=== PATIENT | female | born 1975 | race American Indian/Alaskan Native ===

== ENCOUNTER 2016-12-01 11:49 | Inpatient (IN) | payer MEDICARE, OTHER ==
--- NOTE | 2016-12-01 12:20 | ED PDOC ---
Arrival/HPI - General Chief Complaint: Female Genitourinary Time Seen by Provider: 12/01/16 11:51 Historian: Patient - History of Present Illness Narrative History of Present Illness (Text): 12/01/16 12:16 41 year old female whose past medical history includes UTI's presents to the emergency department with dysuria for the past few weeks. Patient reports she saw her PMD and has been on two courses of antibiotics including Cipro. Patient reports the burning returned three days ago. No abdominal pain or other complaints. Time/Duration: > week Symptom Onset: Gradual Symptom Course: Unchanged Associated Symptoms (Text): None Past Medical History - Provider Review Nursing Documentation Reviewed: Yes - Infectious Disease Hx of Infectious Diseases: None - Tetanus Immunization Tetanus Immunization: Unknown - Cardiac Hx Cardiac Disorders: No - Pulmonary Hx Asthma: Yes Hx Bronchitis: Yes Hx Pneumonia: Yes - Neurological Hx Seizures: Yes - HEENT Hx HEENT Disorder: Yes Hx Blind: Yes (right eye total, left eye partial) Hx Cataracts: No Hx Deafness: No Hx Difficulty Chewing: No Hx Epistaxis: No Hx Glaucoma: No Hx Macular Degeneration: No - Renal Hx Renal Disorder: No Hx Kidney Stones: No - Endocrine/Metabolic Hx Hyperthyroidism: No Hx Hypothyroidism: No - Hematological/Oncological Hx Anemia: No Hx Sickle Cell Disease: No - Integumentary Hx Dermatological Disorder: Yes Hx Basal Cell Carcinoma: No Hx Eczema: No Hx Melanoma: No Hx Psoriasis: No Hx Squamous Cell Carcinoma: No Other/Comment: cellulitis - Musculoskeletal/Rheumatological Hx Arthritis: No Hx Fractures: No Hx Osteoporosis: No - Gastrointestinal Hx Gall Bladder Disease: Yes - Genitourinary/Gynecological Hx Urinary Tract Infection: Yes Other/Comment: self cath - Psychiatric Hx Psychophysiologic Disorder: No Hx Substance Use: No - Surgical History Hx Cholecystectomy: Yes - Anesthesia Hx Anesthesia: Yes Hx Anesthesia Reactions: No Hx Malignant Hyperthermia: No - Suicidal Assessment Feels Threatened In Home Enviroment: No Family/Social History - Physician Review Nursing Documentation Reviewed: Yes Family/Social History: Unknown Family HX Smoking Status: Never Smoked Hx Alcohol Use: No Hx Substance Use: No Hx Substance Use Treatment: No Allergies/Home Meds Allergies/Adverse Reactions: Allergies latex Allergy (Severe, Verified 12/01/16 12:05) RASH Home Medications: Home Meds Medication Instructions Recorded Confirmed carBAMazepine [Tegretol] 300 mg PO BID 12/21/13 12/01/16 Albuterol Sulfate [Proair Hfa] 0.09 mg IH BID PRN 12/01/16 12/01/16 Montelukast [Singulair] 10 mg PO DAILY 12/01/16 12/01/16 Vitb,C/Iron Fum/FA/Vit E/Aa 16 1 tab PO DAILY 12/01/16 12/01/16 [Stress Formula Energy Tablet] Review of Systems - Physician Review All systems were reviewed & negative as marked: Yes - Review of Systems Gastrointestinal: absent: Abdominal Pain Genitourinary Female: Dysuria Physical Exam Vital Signs Reviewed: Yes Vital Signs Temp Pulse Resp BP Pulse Ox 12/01/16 11:58 98.4 F 100 H 20 120/76 95 Temperature: Afebrile Blood Pressure: Normal Pulse: Regular Respiratory Rate: Normal Appearance: Positive for: Well-Appearing, Non-Toxic, Comfortable Pain Distress: None Mental Status: Positive for: Alert and Oriented X 3 - Systems Exam Head: Present: Atraumatic, Normocephalic Pupils: Present: PERRL Extroacular Muscles: Present: EOMI Conjunctiva: Present: Normal Mouth: Present: Moist Mucous Membranes Neck: Present: Normal Range of Motion Respiratory/Chest: Present: Clear to Auscultation, Good Air Exchange. No: Respiratory Distress, Accessory Muscle Use Cardiovascular: Present: Regular Rate and Rhythm, Normal S1, S2. No: Murmurs Abdomen: Present: Normal Bowel Sounds. No: Tenderness, Distention, Peritoneal Signs Back: Present: Normal Inspection Upper Extremity: Present: Normal Inspection. No: Cyanosis, Edema Lower Extremity: Present: Normal Inspection. No: Edema Neurological: Present: GCS=15, CN II-XII Intact, Speech Normal Skin: Present: Warm, Dry, Normal Color. No: Rashes Psychiatric: Present: Alert, Oriented x 3, Normal Insight, Normal Concentration Medical Decision Making ED Course and Treatment: Impression: 41 year old female presents to the emergency department with dysuria for the past few weeks. Differential Diagnosis included but are not limited to: UTI failure of outpt Plan: -- Labs -- Urine culture -- Reassess and disposition Progress Notes: 12/01/16 13:09 pt with failure of 2 different antibiotic outpt courses- discussed with pantera. requests admission - Lab Interpretations Lab Results: 12/01/16 12:30 12/01/16 12:30 Lab Results 12/01/16 12:30: Urine Color Dark yellow, Urine Appearance Cloudy, Urine pH 6.5, Ur Specific [place] 1.025, Urine Protein >=300 H, Urine Glucose (UA) 100 H, Urine Ketones Trace H, Urine Blood Large H, Urine Nitrate Positive H, Urine Bilirubin Small H, Urine Urobilinogen 4.0 H, Ur Leukocyte Esterase Large H, Urine RBC Tntc, Urine WBC Tntc, Ur Epithelial Cells Many, Urine Bacteria Large 12/01/16 12:30: Sodium 142, Potassium 4.1, Chloride 103, Carbon Dioxide 26, Anion Gap 17, BUN 12, Creatinine 0.6, Est GFR ( Amer) > 60, Est GFR (Non- Af Amer) > 60, Random Glucose 116 H, Calcium 9.7, Total Bilirubin 0.4, AST 15, ALT 26, Alkaline Phosphatase 159 H, Total Protein 8.3, Albumin 4.6, Globulin 3.8 , Albumin/Globulin Ratio 1.2 12/01/16 12:30: PT 10.4, INR 0.96, APTT 27.8 12/01/16 12:30: WBC 9.3, RBC 4.95, Hgb 14.1, Hct 42.3, MCV 85.5, MCH 28.5, MCHC 33.3, RDW 14.1, Plt Count 428, MPV 9.5, Gran % 73.2 H, Lymph % (Auto) 19.8 L, [place] % (Auto) 5.0, Eos % (Auto) 1.8, Baso % (Auto) 0.2, Gran # 6.81 H, Lymph # 1.8, [place] # 0.5, Eos # 0.2, Baso # 0.02 12/01/16 12:20: Urine HCG, Qual Negative - Medication Orders Current Medication Orders: Ceftriaxone Sodium (Rocephin 1 Gram Ivpb) 1 gm in 100 mls @ 200 mls/hr IVPB STAT STA PRN Reason: Protocol Stop: 12/01/16 13:27 - Scribe Statement The provider has reviewed the documentation as recorded by the Emanuel Ng Provider Scribe Attestation: All medical record entries made by the Deepthiibbarbra were at my direction and personally dictated by me. I have reviewed the chart and agree that the record accurately reflects my personal performance of the history, physical exam, medical decision making, and the department course for this patient. I have also personally directed, reviewed, and agree with the discharge instructions and disposition. Disposition/Present on Arrival - Present on Arrival Any Indicators Present on Arrival: No History of DVT/PE: No History of Uncontrolled Diabetes: No Urinary Catheter: No History of Decub. Ulcer: No History Surgical Site Infection Following: None - Disposition Have Diagnosis and Disposition been Completed?: Yes Diagnosis: UTI (urinary tract infection), Failure of outpatient treatment Disposition: HOSPITALIZED Disposition Time: 13:10 Condition: STABLE
[2016-12-01 12:34] LABS: ADD MANUAL DIFF? NO
[2016-12-01 12:38] LABS: BASO # 0.02 K/mm3 (0.0-2.0); BASO % 0.2 % (0.0-3.0); EOS # 0.2 (0.0-0.7); EOS % 1.8 % (1.5-5.0); GRAN # 6.81 (1.4-6.5); GRAN % 73.2 % (50.0-68.0); HEMATOCRIT 42.3 % (36.0-48.0); LYMPH # 1.8 (1.2-3.4); LYMPH % 19.8 % (22.0-35.0); MEAN CELL VOLUME 85.5 fL (80.0-105.0); MEAN CORPUSCULAR HEMOGLOBIN 28.5 pg (25.0-35.0); MEAN CORPUSCULAR HGB CONC 33.3 g/dl (31.0-37.0); MEAN PLATELET VOLUME 9.5 fl (7.0-11.0); MONO # 0.5 (0.1-0.6); PLATELET COUNT 428 10^3/uL (120.0-450.0); RED CELL DISTRIBUTION WIDTH 14.1 % (11.5-14.5); WHITE BLOOD COUNT 9.3 10^3/ul (4.5-11.0)
[2016-12-01 12:48] LABS: PH,URINE 6.5 (4.7-8.0); URINE BILIRUBIN SMALL (NEGATIVE); URINE BLOOD LARGE (NEGATIVE); URINE GLUCOSE (UA) 100 mg/dL (NEGATIVE); URINE KETONE TRACE mg/dL (NEGATIVE); URINE LEUKOCYTE ESTERASE LARGE Leu/uL (NEGATIVE); URINE PROTEIN >=300 mg/dL (<30 mg/dL)
[2016-12-01 12:51] LABS: INR 0.96 (0.93-1.08); PARTIAL THROMBOPLASTIN TIME 27.8 Seconds (23.7-30.8)
[2016-12-01 12:52] LABS: ALB/GLOB RATIO 1.2 (1.1-1.8); ALKALINE PHOSPHATASE 159 U/L (38-133); ALT/SGPT 26 U/L (7-56); AST/SGOT 15 U/L (15-39); BILIRUBIN,TOTAL 0.4 mg/dL (0.2-1.3); BLOOD UREA NITROGEN 12 mg/dL (7-21); CALCIUM 9.7 mg/dL (8.4-10.5); CARBON DIOXIDE 26 mmol/L (21-33); CHLORIDE 103 mmol/L (98-107); GFR AFRICAN-AMERICAN > 60; GLUCOSE,RANDOM 116 mg/dL (70-110); POTASSIUM 4.1 mmol/L (3.6-5.0); SODIUM 142 mmol/L (132-148); TOTAL PROTEIN 8.3 g/dL (5.8-8.3); URINE APPEARANCE CLOUDY (CLEAR)
[2016-12-01 12:53] LABS: URINE COLOR DARK YELLOW (YELLOW)
[2016-12-01 12:54] LABS: URINE BACTERIA LARGE (NEG); URINE EPITHELIAL CELLS MANY /hpf (0-5); URINE RBC TNTC /hpf (0-2); URINE WBC TNTC /hpf (0-6)
[2016-12-01] MEDS ORDERED: cefTRIAXone 1 gm 1 GM/100 ML BAG IVPB STA (12:58)
[2016-12-01] MEDS ORDERED: Albuterol-Ipratrop 3 mg / 0.5 (3 ml) UD IH PRN (16:13)
[2016-12-01 17:02] VITALS: BMI 42.2
[2016-12-01] MEDS ORDERED: Pneumococcal 23-Valent Vaccine IM ONE (17:02)
[2016-12-01] MEDS: Meropenem 1g/NS 100mL IVPB 1 GM/100 ML PIGGYBACK IVPB SCH (23:45)
[2016-12-02] MEDS: Meropenem 1g/NS 100mL IVPB 1 GM/100 ML PIGGYBACK IVPB SCH ×3 (06:18→21:23)
--- NOTE | 2016-12-02 07:38 | HP ---
CHIEF COMPLAINT: Burning on micturition, frequency. HISTORY OF PRESENT ILLNESS: The patient is a 41-year-old, my private patient, history of spina bifida, angiogenic bladder, doing self-catheterization, has a UTI a couple of weeks ago. My office again gave Bactrim, but still patient has symptoms. Then, we did culture and sensitivity. Bacteria was sensitive to nitrofurantoin. We gave the course of nitrofurantoin, but patient is not better. Then, again, she called my office about the symptoms. I told her to go to see the urologist, but symptoms increased. That is why she came to the Emergency Room. According to patient, burning returned 3 days after antibiotics. No abdominal pain or other complaints. PAST MEDICAL HISTORY: Asthma, bronchitis, pneumonia, seizures. 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 FAMILY HISTORY: Father and mother noncontributory. HABITS: Never smoked, no drugs, no ethanol. ALLERGIES: THE PATIENT IS ALLERGIC TO LATEX. HOME MEDICATIONS: Tegretol, ProAir, Singulair. REVIEW OF SYSTEMS: The patient is seen and examined on the bedside, looks comfortable, complaining about lower abdominal pain once in a while, complaining about dysuria and frequency. No fever, no chills. No hematuria, no hematochezia. No headache, no dizziness. PHYSICAL EXAMINATION: VITAL SIGNS: Temperature 98.4, pulse 100, respiratory rate 20, blood pressure 120/76, pulse oximetry 95%. HEENT: Head normocephalic, atraumatic. Eyes: PERRLA. Extraocular muscles intact. Conjunctivae clear. Nose patent. Mucous membranes moist. NECK: Supple. No carotid bruits, no JVD, no thyromegaly. CHEST: Bilaterally symmetrical. HEART: S1, S2 positive. LUNGS: Clear to auscultation. ABDOMEN: Soft. Bowel sounds positive. No organomegaly. EXTREMITIES: No edema, no cyanosis. NEUROLOGIC: The patient is awake, alert. Moving all 4 extremities. No focal deficits. LABORATORIES: White blood cells 9.3, hemoglobin 14.1, hematocrit 42.3, platelets 428. Sodium 142, potassium 4.1, BUN 12, creatinine 0.6, glucose noted ASSESSMENT AND PLAN: The patient is a 41-year-old lady with hyperglycemia, repeated urinary tract infection. No fever, no leukocytosis because the patient has partially treated urinary tract infection. She did 2 courses of antibiotics. Failure of outpatient treatment of urinary tract infection, history of spina bifida, neurogenic bladder, obesity, blind from 1 eye. We admitted the patient, started on antibiotics, called consult with infectious disease and with urologist. Gastrointestinal and deep venous thrombosis prophylaxis. Repeat labs. We will follow up. Rhea Randhawa MD cc: [id number] TT: 12/02/2016 07:38:10 en MTDD
--- NOTE | 2016-12-02 09:15 | US ---
PROCEDURE: Ultrasound of the Kidneys HISTORY: rule out hydronephrosis COMPARISON: None available. TECHNIQUE: Sonogram of the kidneys. FINDINGS: RIGHT KIDNEY: Measures: 9.7 cm. Normal in size, contour and echogenicity. No stone, solid mass lesion or hydronephrosis visualized. LEFT KIDNEY: Measures: 10.8 cm. Normal in size, contour and echogenicity. No stone, solid mass lesion or hydronephrosis visualized. OTHER FINDINGS: None. IMPRESSION: Unremarkable renal sonogram.
[2016-12-02] MEDS ORDERED: cefTRIAXone 1 gm 1 GM/100 ML BAG IVPB SCH (10:00)
[2016-12-02] MEDS: Multivitamin Therapeutic Tab PO SCH (10:01)
--- NOTE | 2016-12-02 10:47 | CP.PCM.CON ---
History of Present Illness - History of Present Illness History of Present Illness: 41 year old female with PMH of neurogenic bladder with chronic self- catheterization, history of asthma and bronchitis, history of pneumonia, history of multiple UTI's, right eye blindness, history of basal cell CA, S/P cholecystectomy, spina bifida, was sent in for admission because of possible UTI. The patient was seen 2 weeks ago by her PMD and was started on treatment with Nitrofurantoin based on urine cx. She went back to her PMD because she felt it was not working and she continued the burning sensation on catheterization. She was then switched to Ciprofloxacin and she completed a 7 day course with relief. It then recurred 3 days earlier and she was told by her PMD to be admitted. She denies fever or chills, no nausea or vomiting, no flank pain, no headache or dizziness, no chest pain, no SOB, no cough or colds, no abdominal pain, no diarrhea. In the ED, urinalysis showed pyuria and Infectious Diseases consult is requested to further evaluate and manage. Review of Systems - Review of Systems All systems: reviewed and no additional remarkable complaints except (as per HPI ) Past Patient History - Infectious Disease Hx of Infectious Diseases: None - Tetanus Immunizations Tetanus Immunization: Unknown - Past Social History Smoking Status: Never Smoked - CARDIAC Hx Cardiac Disorders: No - PULMONARY Hx Asthma: Yes Hx Bronchitis: Yes Hx Pneumonia: Yes - NEUROLOGICAL Hx Seizures: Yes (last seizure 3/4 yrs ago) - HEENT Hx HEENT Problems: Yes (eyeglasses) Hx Blind: Yes (right eye total, left eye partial) Hx Cataracts: No Hx Deafness: No Hx Difficulty Chewing: No Hx Epistaxis: No Hx Glaucoma: No Hx Macular Degeneration: No Other/Comment: recent cough and cold done 1 wk ago - RENAL Hx Chronic Kidney Disease: No Hx Neurogenic Bladder: Yes (self catherization) - ENDOCRINE/METABOLIC Hx Hyperthyroidism: No Hx Hypothyroidism: No - HEMATOLOGICAL/ONCOLOGICAL Hx Anemia: No Hx Sickle Cell Disease: No - INTEGUMENTARY Hx Dermatological Problems: Yes Hx Basil Cell: No Hx Eczema: No Hx Melanoma: No Hx Psoriasis: No Hx Squamous Cell: No Other/Comment: cellulitis, pt had wound in front of r great toe, osteomylitis, that was cared for by dr alamo in 2014 which is now healed, caused by shoes that were too tight - MUSCULOSKELETAL/RHEUMATOLOGICAL Hx Musculoskeletal Disorders: Yes (born with spina bifida) Hx Arthritis: No Hx Falls: No Hx Fractures: No Hx Osteoporosis: No Hx Unsteady Gait: Yes (uses walker b/l leg braces) Other/Comment: multiple 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] from age 19 to 3 yrs ago, multiple picc lines for home abx - GASTROINTESTINAL Hx Gall Bladder Disease: Yes Hx Gastroesophageal Reflux: Yes - GENITOURINARY/GYNECOLOGICAL Hx Urinary Tract Infection: Yes Other/Comment: self cath - PSYCHIATRIC Hx Psychophysiologic Disorder: No Hx Substance Use: No - SURGICAL HISTORY Hx Surgeries: Yes (multiple picc lines in and out) Hx Cholecystectomy: Yes Other/Comment: multiple surgeries from to 10 yrs old include 14 shunt operations, pins in hips, spinal cord sx - ANESTHESIA Hx Anesthesia: Yes Hx Anesthesia Reactions: No Hx Malignant Hyperthermia: No Meds Allergies/Adverse Reactions: Allergies Allergy/AdvReac Type Severity Reaction Status Date / Time latex Allergy Severe RASH Verified 12/01/16 12:05 - Medications Medications: Current Medications Acetaminophen (Tylenol 325mg Tab) 650 mg PO Q6H PRN PRN Reason: Pain, moderate (4-7) Last Admin: 12/01/16 20:01 Dose: 650 mg Albuterol/Ipratropium (Duoneb 3 Mg/0.5 Mg (3 Ml) Ud) 3 ml IH [id number] PRN PRN Reason: Shortness of Breath Carbamazepine (Tegretol) 300 mg PO Q12 WILVER PRN Reason: Protocol Last Admin: 12/01/16 22:18 Dose: 300 mg Ceftriaxone Sodium (Rocephin 1 Gram Ivpb) 1 gm in 100 mls @ 100 mls/hr IVPB DAILY WILVER PRN Reason: Protocol Montelukast Sodium (Singulair) 10 mg PO DAILY WILVER Multivitamins (Thera Tab) 1 tab PO DAILY WILVER Physical Exam - Constitutional Appears: Non-toxic, No Acute Distress - Head Exam Head Exam: NORMAL INSPECTION - ENT Exam ENT Exam: Mucous Membranes Moist - Neck Exam Neck exam: Negative for: Lymphadenopathy, Meningismus - Respiratory Exam Respiratory Exam: Decreased Breath Sounds - Cardiovascular Exam Cardiovascular Exam: +S1, +S2 - GI/Abdominal Exam GI & Abdominal Exam: Soft. absent: Tenderness Results - Vital Signs Recent Vital Signs: Last Vital Signs Temp 98.4 F 12/01/16 16:32 Pulse 95 H 12/01/16 16:32 Resp 20 12/01/16 16:32 BP 120/84 12/01/16 16:32 Pulse Ox 95 12/01/16 14:45 - Labs Result Diagrams: 12/01/16 12:30 12/01/16 12:30 Assessment & Plan - Assessment and Plan (Free Text) Plan: Assessment Consider urinary tract infection in a patient with history of multiple UTI episodes, in a patient with neurogenic bladder and chronic self-catheterization neurogenic bladder with chronic self-catheterization history of asthma and bronchitis history of pneumonia history of multiple UTI's right eye blindness history of basal cell CA S/P cholecystectomy spina bifida Plan Because the patient has been exposed to multiple antibiotics in the past 2 weeks , will start patient on Merrem pending blood and urine cx; reviewed renal ultrasound which did not show hydronephrosis or nephrolithiasis will follow Urology evaluation and recommendations will follow clinically
[2016-12-03] MEDS: Meropenem 1g/NS 100mL IVPB 1 GM/100 ML PIGGYBACK IVPB SCH ×3 (05:13→22:25)
--- NOTE | 2016-12-03 08:01 | PN ---
DATE: 12/03/2016 The patient is a 41-year-old female. The patient was seen and examined on the bedside early in the morning, was sleeping and snoring aloud and upon wake up, she told me that she heard from different people that she is snoring at night and sometimes, she is waking up middle of the night and she does not know what is happening to her. Her abdominal pain is getting better. No fever, no chills. No nausea, vomiting, diarrhea. No hematuria, no hematochezia. No headache, no dizziness. PHYSICAL EXAMINATION: VITAL SIGNS: Temperature 99.4, pulse 113, blood pressure 114/75, respiratory rate 18. HEENT: Head normocephalic, atraumatic. Eyes, PERRLA. Extraocular muscles intact. Conjunctivae clear. Nose patent. Mucous membranes moist. NECK: Supple. No carotid bruit, no JVD, no thyromegaly. CHEST: Bilaterally symmetrical. HEART: S1, S2 positive. LUNGS: Clear to auscultation. ABDOMEN: Soft. Bowel sounds positive. No organomegaly. EXTREMITIES: No edema, no cyanosis. NEUROLOGIC: The patient was sleeping, now is awake, moving all 4 extremities. No focal deficit. Communicating very well on single questions. MEDICATIONS: Albuterol, meropenem, Singulair, Tegretol, multivitamins, Tylenol. LABORATORIES: White blood cells 9.3, hemoglobin 14.1, hematocrit 42.3, platelets 428. Sodium noted , potassium 4.1, BUN 12, creatinine 0.6, glucose 116. ASSESSMENT AND PLAN: The patient is a 41-year-old lady with proteinuria, glucosuria, hematuria, urinary tract infection, hyperglycemia, history of spina bifida, neurogenic bladder, has a history of coronary self-catheterization, history of asthma and bronchitis, history of pneumonia in the past, multiple times urinary tract infection, right eye blindness, history of renal cell cancer , status post cholecystectomy. Came in the hospital for insistent antibiotics for resistant urinary tract infection. Finished a course of nitrofurantoin and Bactrim as outpatient. Now, getting antibiotics from infectious disease, Dr. Frank/Dr. Morel. The patient has used multiple antibiotics in the past. The patient is started on Merrem by ID pending on the urine culture. Ultrasound of the kidneys was done and reviewed. We do not show any hydronephrosis or nephrolithiasis. Urologist is on the case. Consult called with Dr. Olvera for obstructive sleep apnea and even length of time discussion done with Dr. Olvera he patient also. Meanwhile, continue antibiotic treatment. Gastrointestinal and deep venous thrombosis prophylaxis. Waiting for Dr. Armstrong's response. Physical therapy. We will follow up. Rhea Randhawa MD cc: [id number] TT: 12/03/2016 08:00:12 Confirmation # [id number] Dictation # [id number] en MTDD
[2016-12-03 08:21] LABS: CHOLESTEROL 173 mg/dL (130-200)
--- NOTE | 2016-12-03 09:30 | CP.PCM.PN ---
Subjective - Date & Time of Evaluation Date of Evaluation: 12/03/16 Time of Evaluation: 08:20 - Subjective Subjective: Patient was starting to feel better but then had burning sensation again last night, no fevers overnight, no nausea, no diarrhea. Objective - Vital Signs/Intake and Output Vital Signs (last 24 hours): Temp Pulse Resp BP Pulse Ox 98.2 F 78 18 119/66 97 12/03/16 07:32 12/03/16 07:32 12/03/16 07:32 12/03/16 07:32 12/03/16 07:32 Intake and Output: 12/03/16 12/03/16 06:59 18:59 Intake Total 1040 Output Total 0 Balance 1040 - Medications Medications: Current Medications Acetaminophen (Tylenol 325mg Tab) 650 mg PO Q6H PRN PRN Reason: Pain, moderate (4-7) Last Admin: 12/03/16 03:26 Dose: 650 mg Albuterol/Ipratropium (Duoneb 3 Mg/0.5 Mg (3 Ml) Ud) 3 ml IH [id number] PRN PRN Reason: Shortness of Breath Carbamazepine (Tegretol) 300 mg PO Q12 WILVER PRN Reason: Protocol Last Admin: 12/02/16 21:24 Dose: 300 mg Meropenem 1g/NS 100mL IVPB (Meropenem 1g/Ns 100ml Ivpb) 1 gm in 100 mls @ 100 mls/hr IVPB Q8 WILVER PRN Reason: Protocol Stop: 12/08/16 22:46 Last Admin: 12/03/16 05:13 Dose: 100 mls/hr Montelukast Sodium (Singulair) 10 mg PO HS [facility] Last Admin: 12/02/16 21:24 Dose: 10 mg Multivitamins (Thera Tab) 1 tab PO DAILY WILVER Last Admin: 12/02/16 10:01 Dose: 1 tab - Labs Labs: PT 10.4 Seconds (9.9-11.8) 12/01/16 12:30 INR 0.96 (0.93-1.08) 12/01/16 12:30 APTT 27.8 Seconds (23.7-30.8) 12/01/16 12:30 - Constitutional Appears: Non-toxic, No Acute Distress - Head Exam Head Exam: NORMAL INSPECTION - ENT Exam ENT Exam: Mucous Membranes Moist - Neck Exam Neck Exam: absent: Lymphadenopathy, Meningismus - Respiratory Exam Respiratory Exam: Decreased Breath Sounds - Cardiovascular Exam Cardiovascular Exam: +S1, +S2 - GI/Abdominal Exam GI & Abdominal Exam: Soft. absent: Tenderness - Back Exam Back Exam: absent: CVA tenderness (L), CVA tenderness (R) Assessment and Plan - Assessment and Plan (Free Text) Plan: Assessment urinary tract infection with gram negative bacilli in a patient with history of multiple UTI episodes, in a patient with neurogenic bladder and chronic self- catheterization neurogenic bladder with chronic self-catheterization history of asthma and bronchitis history of pneumonia history of multiple UTI's right eye blindness history of basal cell CA S/P cholecystectomy spina bifida Plan continue Merrem pending identification and senstivities of the gram negative bacilli in the urine; blood cx are negative; reviewed renal ultrasound which did not show hydronephrosis or nephrolithiasis will follow up Urology evaluation and recommendations will continue to follow clinically
[2016-12-03] MEDS: Multivitamin Therapeutic Tab PO SCH (10:18)
--- NOTE | 2016-12-03 20:37 | CON ---
DATE: 12/03/2016 REFERRING PHYSICIAN: Dr. Randhawa. REASON FOR CONSULT: Loud snoring, daytime sleepy and tired. HISTORY OF PRESENT ILLNESS: This is a 41-year-old female with past medical history significant for c hronic obstructive lung disease, seizure disorder, history of spina bifida, neurogenic bladder, urina ry retention, recurrent UTI, who failed outpatient UTI treatment and was admitted for further workup. Has loud snoring while in the hospital, daytime sleepy and tired, mild cough. No chest pain, no nausea, no vomiting, no diarrhea. PAST MEDICAL HISTORY: Chronic obstructive lung disease, seizure disorder, history of spina bifida, n eurogenic bladder. SOCIAL HISTORY: No history of smoking or alcohol use. FAMILY HISTORY: No significant cardiopulmonary disease reported. ALLERGIES: No medication allergy but allergic to LATEX. MEDICATIONS: She is on DuoNeb q. 6 hours p.r.n., meropenem 1 g IV q. 8 hours, Singulair 10 mg daily, Tegretol 300 mg twice a day, multivitamins daily, Tylenol on p.r.n. basis. REVIEW OF SYSTEMS: No headache, no rhinitis. Admits to loud snoring, daytime sleepy and tired. No nausea, no vomiting, no abdominal pain, dysuria. No leg pain or leg swelling. PHYSICAL EXAMINATION: GENERAL: Lying in the bed, no acute distress. VITAL SIGNS: Temp is 98, heart rate 96, respiratory rate is 20, blood pressure 136/86, pulse ox 96% on room air. HEENT: Moist mucous membranes. Crowded airway. Mallampati score is 4. NECK: Short, thick neck. LUNGS: Has a fair airflow with few rhonchi. HEART: S1, S2. ABDOMEN: Soft, nontender. No organomegaly. EXTREMITIES: There is not much edema. NEUROLOGIC: Awake, alert, follows simple commands. LABORATORY DATA: Shows hemoglobin 14.1, hematocrit 42.3, WBC 9.3, platelet is 428. INR 0.96 and PTT is 28. Sodium 142, potassium 4.1, chloride 103, bicarbonate 26, BUN 12, creatinine 0.6, glucose 116 , hemoglobin A1c 5.8, calcium 9.7, AST 15, ALT 26, alkaline phosphatase is 159, albumin is 4.6. Chol esterol is 173. Microbiology: Blood cultures have been negative. Urine culture has a salmonella gr owth , which is more than 100,000 colonies. IMPRESSION AND PLAN: Recurrent urinary tract infection with neurogenic bladder, history of spina bif tasneem, chronic obstructive lung disease, may have a sleep apnea syndrome. Case discussed with Dr. Cuate ruby. I spoke to the patient in detail. I spoke about sleep apnea and its consequences. Would suggest to keep head elevated at 45 degrees. Avoid sedative. Continue Singulair for now, continue nebulize r treatment, will need outpatient pulmonary function tests, also attended sleep study. Presently kimani ng followed by neurology and infectious diseases. Thank you and we will follow with you. Marin Olvera MD cc: [id number] TT: 12/03/2016 20:36:53 Confirmation # [id number] Dictation # [id number] ln
[2016-12-04] MEDS: Meropenem 1g/NS 100mL IVPB 1 GM/100 ML PIGGYBACK IVPB SCH ×2 (05:23→14:22)
[2016-12-04 07:26] LABS: HEMATOCRIT 40.4 % (36.0-48.0); MEAN CORPUSCULAR HEMOGLOBIN 28.3 pg (25.0-35.0); MEAN CORPUSCULAR HGB CONC 32.9 g/dl (31.0-37.0); MEAN PLATELET VOLUME 9.5 fl (7.0-11.0); RED CELL DISTRIBUTION WIDTH 14.1 % (11.5-14.5); WHITE BLOOD COUNT 8.9 10^3/ul (4.5-11.0)
[2016-12-04 08:06] LABS: BLOOD UREA NITROGEN 11 mg/dL (7-21); CALCIUM 9.2 mg/dL (8.4-10.5); CARBON DIOXIDE 25 mmol/L (21-33); CHLORIDE 103 mmol/L (98-107); GFR AFRICAN-AMERICAN > 60; GLUCOSE,RANDOM 95 mg/dL (70-110); POTASSIUM 4.1 mmol/L (3.6-5.0); SODIUM 137 mmol/L (132-148)
[2016-12-04] MEDS ORDERED: Barium Sulfate Susp 2.1% w/v, 2.0% w/w 450 mL Bottle PO ONE (08:31)
[2016-12-04] MEDS: Multivitamin Therapeutic Tab PO SCH (10:12)
--- NOTE | 2016-12-04 13:01 | CT ---
PROCEDURE: CT Abdomen and Pelvis without intravenous contrast HISTORY: rule out intra-abdominal infection COMPARISON: None. TECHNIQUE: Without contrast.. Contrast Dose: Radiation dose: Total exam DLP = 1074 mGy-cm. This CT exam was performed using one or more of the following dose reduction techniques: Automated exposure control, adjustment of the mA and/or kV according to patient size, and/or use of iterative reconstruction technique. FINDINGS: LOWER THORAX: Unremarkable. LIVER: Unremarkable. No gross lesion or ductal dilatation. GALLBLADDER AND BILE DUCTS: Gallbladder removed PANCREAS: Unremarkable. No gross lesion or ductal dilatation. SPLEEN: Unremarkable. ADRENALS: Unremarkable. No mass. KIDNEYS AND URETERS: Unremarkable. No hydronephrosis. No solid mass. VASCULATURE: Unremarkable. No aortic aneurysm. BOWEL: Unremarkable. No obstruction. No gross mural thickening. APPENDIX: Unremarkable. Normal appendix. PERITONEUM: Unremarkable. No free fluid. No free air. LYMPH NODES: Unremarkable. No enlarged lymph nodes. BLADDER: Unremarkable. REPRODUCTIVE: There is a 7 cm fibroid in the lower uterus best seen on sagittal image 100. BONES: There is spina bifida in the lower lumbar spine and sacrum. OTHER FINDINGS: None. IMPRESSION: No acute intra-abdominal findings
--- NOTE | 2016-12-04 14:33 | CP.PCM.PN ---
Subjective - Date & Time of Evaluation Date of Evaluation: 12/04/16 Time of Evaluation: 10:15 - Subjective Subjective: Patient underwent CT scan today. Still with some burning sensation in the urine but a little less. No fevers overnight. Objective - Vital Signs/Intake and Output Vital Signs (last 24 hours): Temp Pulse Resp BP Pulse Ox 97.6 F 85 20 131/85 96 12/04/16 08:15 12/04/16 08:15 12/04/16 08:15 12/04/16 08:15 12/04/16 08:15 Intake and Output: 12/04/16 12/04/16 06:59 18:59 Intake Total 980 Balance 980 - Medications Medications: Current Medications Acetaminophen (Tylenol 325mg Tab) 650 mg PO Q6H PRN PRN Reason: Pain, moderate (4-7) Last Admin: 12/04/16 08:04 Dose: 650 mg Albuterol/Ipratropium (Duoneb 3 Mg/0.5 Mg (3 Ml) Ud) 3 ml IH [id number] PRN PRN Reason: Shortness of Breath Carbamazepine (Tegretol) 300 mg PO Q12 [facility] PRN Reason: Protocol Last Admin: 12/03/16 22:24 Dose: 300 mg Meropenem 1g/NS 100mL IVPB (Meropenem 1g/Ns 100ml Ivpb) 1 gm in 100 mls @ 100 mls/hr IVPB Q8 [facility] PRN Reason: Protocol Stop: 12/08/16 22:46 Last Admin: 12/04/16 05:23 Dose: 100 mls/hr Montelukast Sodium (Singulair) 10 mg PO HS [facility] Last Admin: 12/03/16 22:26 Dose: 10 mg Multivitamins (Thera Tab) 1 tab PO DAILY [facility] Last Admin: 12/03/16 10:18 Dose: 1 tab - Labs Labs: 12/04/16 07:00 12/04/16 07:00 PT 10.4 Seconds (9.9-11.8) 12/01/16 12:30 INR 0.96 (0.93-1.08) 12/01/16 12:30 APTT 27.8 Seconds (23.7-30.8) 12/01/16 12:30 - Constitutional Appears: Non-toxic, No Acute Distress - Head Exam Head Exam: NORMAL INSPECTION - Neck Exam Neck Exam: absent: Lymphadenopathy, Meningismus - Respiratory Exam Respiratory Exam: Decreased Breath Sounds - Cardiovascular Exam Cardiovascular Exam: +S1, +S2 - GI/Abdominal Exam GI & Abdominal Exam: Soft. absent: Tenderness Assessment and Plan - Assessment and Plan (Free Text) Plan: Assessment urinary tract infection with Salmonella group C in a patient with history of multiple UTI episodes, in a patient with neurogenic bladder and chronic self- catheterization neurogenic bladder with chronic self-catheterization history of asthma and bronchitis history of pneumonia history of multiple UTI's right eye blindness history of basal cell CA S/P cholecystectomy spina bifida Plan will change Merrem to Rocephin reviewed renal ultrasound which did not show hydronephrosis or nephrolithiasis as well as CT scan of the abdomen and pelvis which does not show acute pathology will follow up Urology evaluation will continue to follow clinically
[2016-12-04] MEDS: cefTRIAXone 1 gm 1 GM/100 ML BAG IVPB SCH (15:39)
--- NOTE | 2016-12-04 16:56 | PN ---
DATE: 12/04/2016 REFERRING PHYSICIAN: Dr. Randhawa. SUBJECTIVE: The patient is lying in the bed, head at 45 degrees. Night was unremarkable. No headac he, no rhinitis. No nausea, no vomiting, no diarrhea. No leg pain or leg swelling. OBJECTIVE: GENERAL: No acute distress. VITAL SIGNS: Temperature is 98, heart rate is 85, respiratory rate is 20, blood pressure 131/85, pul se ox 96% on room air. HEENT: Moist mucous membrane. Crowded airway. Mallampati score is 4. NECK: Supple. No JVD. LUNGS: Have fair airflow with a few rhonchi. HEART: S1 and S2. ABDOMEN: Soft, nontender. No organomegaly. EXTREMITIES: There is no edema. NEUROLOGIC: Awake, alert, follows simple command. MEDICATIONS: She is on DuoNeb q. 6 hours p.r.n., Rocephin 1 g IV daily, Singulair 10 mg daily, Tegre toni 300 mg q. 12 hours, multivitamins daily, Tylenol p.r.n. basis. LABORATORY DATA: Shows hemoglobin 13.3, hematocrit 40.4, WBC 8.9, platelet is 403. Sodium 137, pota ssium 4.1, chloride 103, bicarbonate 25, BUN 11, creatinine 0.5, glucose 95, calcium 9.2. TSH 2.1. MICROBIOLOGY: Blood culture negative. Urine culture has a salmonella group which is sensitive to am picillin and Bactrim and also Cipro. Had a CAT scan of the abdomen done which shows no acute abdominal finding. 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 Will alma delia nue antibiotics as per infectious diseases. Pulmonary point of view, continue bronchodilator, keep h ead elevated at 45 degrees. Sleep apnea precaution. Gastric and DVT prophylaxis. Outpatient PFT an d attended sleep study. Thank you, and will follow with you. Marin Olvera MD cc: [id number] TT: 12/04/2016 16:55:28 Confirmation # [id number] Dictation # [id number] mn
--- NOTE | 2016-12-04 19:50 | PN ---
DATE: 12/04/2016 SUBJECTIVE: The patient was seen and examined on the bedside, sitting on the chair, night was unrema rkable. No fever, no chills, no nausea, vomiting, diarrhea. No headache, no dizziness. No swelling of the legs. Waiting for Dr. Armstrong's input. PHYSICAL EXAMINATION: VITAL SIGNS: Temperature 98, heart rate 85, respirations 20, blood pressure 130/85, and pulse oximet ry 96% on room air. HEENT: Head normocephalic, atraumatic. Eyes PERRLA. Extraocular muscles intact. Conjunctivae are clear. Nose patent. Mucous membranes moist. NECK: Supple. No carotid bruit, JVD or thyromegaly. CHEST: Bilaterally symmetrical. HEART: S1, S2 positive. LUNGS: Clear to auscultation. ABDOMEN: Soft, nontender. No organomegaly. EXTREMITIES: No edema, no cyanosis. NEUROLOGIC: The patient is awake, alert, follows simple commands. MEDICATIONS: DuoNeb, Rocephin, Singulair, Tegretol, multivitamins, Tylenol. LABORATORY DATA: Hemoglobin 13.3, hematocrit 40.4, white blood cells 8.9, platelets 403. Sodium 137 , potassium 4.1, BUN 11, creatinine 0.5, glucose 95. TSH 2.1. CAT scan of the abdomen done shows no acute abdominal findings. ASSESSMENT AND PLAN: The patient is a 41-year-old female with history of spina bifida, neurogenic bl adder, recurrent urinary tract infections, using self-catheterization, chronic obstructive lung disea se, asthma, sleep apnea syndrome, obesity, had salmonella in the urine. We will continue antibiotics as per infectious disease. Sleep apnea precautions. Waiting for Dr. Armstrong's input. Gastrointest inal and deep venous thrombosis prophylaxis. Repeat labs. We will follow up. Rhea Randhawa MD cc: [id number] TT: 12/04/2016 19:50:25 Confirmation # [id number] Dictation # [id number] brittney
[2016-12-05] MEDS: cefTRIAXone 1 gm 1 GM/100 ML BAG IVPB SCH (09:07)
[2016-12-05] MEDS: Multivitamin Therapeutic Tab PO SCH (09:08)
--- NOTE | 2016-12-05 15:30 | PN ---
DATE: 12/05/2016 REFERRING PHYSICIAN: Dr. Randhawa. SUBJECTIVE: She is sitting up in the bed. Night was unremarkable. No headache, no rhinitis, no asya sea, no vomiting, no diarrhea. No leg pain or leg swelling. OBJECTIVE: GENERAL: No acute distress. VITAL SIGNS: Temp is 98, heart rate is 98, respiratory rate is 18, blood pressure 110/76, pulse ox 9 6% room air. HEENT: Moist mucous membrane. Crowded airway. Mallampati score is 4. NECK: Supple. No JVD. LUNGS: Have fair expiratory with a few rhonchi. HEART: S1, S2. ABDOMEN: Soft, nontender. No organomegaly. EXTREMITIES: There is no edema. NEUROLOGIC: Awake, alert, follows simple command. MEDICATIONS: She is on DuoNeb q. 6 hours p.r.n., Rocephin 1 g IV daily, Singulair 10 mg daily, Tegre toni 300 mg twice a day, multivitamins daily, Tylenol p.r.n. basis. IMPRESSION: Recurrent urinary tract infection, has a neurogenic bladder, spina bifida, chronic obstr uctive lung disease, may have sleep apnea syndrome. Pulmonary point of view, doing okay. Keep head at 45 degrees, bronchodilators, antibiotics as per infectious diseases, gastric prophylaxis, deep mago ous thrombosis prophylaxis, fall precaution. Thank you, and will follow with you. Marin Olvera MD cc: [id number] TT: 12/05/2016 15:29:27 Confirmation # [id number] Dictation # [id number] roger
--- NOTE | 2016-12-05 16:13 | CP.PCM.PN ---
Subjective - Date & Time of Evaluation Date of Evaluation: 12/05/16 Time of Evaluation: 10:15 - Subjective Subjective: Comfortable, not in distress, afebrile overnight. Still with some burning sensation but less. Objective - Vital Signs/Intake and Output Vital Signs (last 24 hours): Temp Pulse Resp BP Pulse Ox 97.9 F 85 19 102/70 98 12/04/16 16:00 12/04/16 16:00 12/04/16 16:00 12/04/16 16:00 12/04/16 16:00 Intake and Output: 12/05/16 12/05/16 06:59 18:59 Intake Total 590 120 Balance 590 120 - Medications Medications: Current Medications Acetaminophen (Tylenol 325mg Tab) 650 mg PO Q6H PRN PRN Reason: Pain, moderate (4-7) Last Admin: 12/04/16 14:54 Dose: 650 mg Albuterol/Ipratropium (Duoneb 3 Mg/0.5 Mg (3 Ml) Ud) 3 ml IH [id number] PRN PRN Reason: Shortness of Breath Carbamazepine (Tegretol) 300 mg PO Q12 [facility] PRN Reason: Protocol Last Admin: 12/04/16 22:17 Dose: 300 mg Ceftriaxone Sodium (Rocephin 1 Gram Ivpb) 1 gm in 100 mls @ 100 mls/hr IVPB DAILY [facility] PRN Reason: Protocol Last Admin: 12/04/16 15:39 Dose: 100 mls/hr Montelukast Sodium (Singulair) 10 mg PO HS [facility] Last Admin: 12/04/16 22:17 Dose: 10 mg Multivitamins (Thera Tab) 1 tab PO DAILY [facility] Last Admin: 12/04/16 10:12 Dose: 1 tab - Labs Labs: 12/04/16 07:00 12/04/16 07:00 PT 10.4 Seconds (9.9-11.8) 12/01/16 12:30 INR 0.96 (0.93-1.08) 12/01/16 12:30 APTT 27.8 Seconds (23.7-30.8) 12/01/16 12:30 - Constitutional Appears: Non-toxic, No Acute Distress - Head Exam Head Exam: NORMAL INSPECTION - ENT Exam ENT Exam: Mucous Membranes Moist - Neck Exam Neck Exam: absent: Lymphadenopathy, Meningismus - Respiratory Exam Respiratory Exam: Decreased Breath Sounds - Cardiovascular Exam Cardiovascular Exam: +S1, +S2 - GI/Abdominal Exam GI & Abdominal Exam: Soft. absent: Tenderness Assessment and Plan - Assessment and Plan (Free Text) Plan: Assessment urinary tract infection with Salmonella group C in a patient with history of multiple UTI episodes, in a patient with neurogenic bladder and chronic self- catheterization neurogenic bladder with chronic self-catheterization history of asthma and bronchitis history of pneumonia history of multiple UTI's right eye blindness history of basal cell CA S/P cholecystectomy spina bifida Plan continue Rocephin (day 4); reviewed renal ultrasound which did not show hydronephrosis or nephrolithiasis as well as CT scan of the abdomen and pelvis which does not show acute pathology will follow up Urology evaluation will continue to follow clinically
--- NOTE | 2016-12-06 07:12 | PN ---
DATE: 12/05/2016 SUBJECTIVE: The patient was seen and examined on the bedside, looks comfortable , still having once in a while abdominal pain. No swelling of the leg. No chest pain, no palpitation, no headache, no dizziness, no fever, no chills. PHYSICAL EXAMINATION: VITAL SIGNS: Temperature 98, heart rate 98, respiratory rate 18, blood pressure 110/76, and pulse oximetry 96% on room air. HEENT: Head normocephalic, atraumatic. Eyes: PERRLA. Extraocular muscles intact. Conjunctivae clear. Nose patent. Mucous membranes moist. NECK: Supple. No carotid bruit, JVD or thyromegaly. CHEST: Bilaterally symmetrical. HEART: S1, S2 positive. LUNGS: Clear to auscultation. ABDOMEN: Soft. Bowel sounds present. No organomegaly. EXTREMITIES: No edema, no cyanosis. NEUROLOGIC: The patient is awake, alert, moving all 4 extremities. No focal deficits. MEDICATIONS: DuoNeb, Rocephin, Singulair, Tegretol, multivitamins, Tylenol. ASSESSMENT AND PLAN: The patient is a 41-year-old lady with history of recurrent urinary tract infection, has neurogenic bladder, spina bifida, chronic obstructive lung disease, may have sleep apnea syndrome. Pulmonary point of view, doing very well. Keep head elevated above 45 degrees. Antibiotics as per infectious disease. Gastric prophylaxis, deep vein thrombosis prophylaxis. Still waiting for urologist's input. Dr. Armstrong consult called a long time ago, but we do not answer. Infectious disease is on the case, Manuel Adriel. looks like with salmonella, group C in the patient with a history of urinary tract infection episode. The patient has history of self-catheterization, history of asthma, bronchitis, pneumonia, multiple urinary tract infections, right eye blindness, history of basal cell carcinoma, history of cholecystectomy, spinal bifida. The patient is on Rocephin, day 4. No hydroneph . the CAT scan, but we are awaiting for Dr. Alejandro Armstrong's consult. This is almost 4-6 days we do not have any lab workup from him. Gastrointestinal and deep venous thrombosis prophylaxis. Repeat labs. We will follow up. Rhea Randhawa MD cc: [id number] TT: 12/06/2016 07:12:14 Confirmation # [id number] Dictation # [id number] tn MTDD
[2016-12-06] MEDS: cefTRIAXone 1 gm 1 GM/100 ML BAG IVPB SCH (10:27)
[2016-12-06] MEDS: Multivitamin Therapeutic Tab PO SCH (10:27)
--- NOTE | 2016-12-06 15:27 | PN ---
DATE: 12/06/2016 The patient is a 41-year-old female. The patient was seen and examined on the bedside, still having burning on micturition and lower abdominal pain. Not seen by the urologist. Officially for Dr. Armstrong, consult was put on Saturday and today nursing staff called Dr. Armstrong to make sure that he has consult. No fever, no chills. No headache. No swelling of the legs. PHYSICAL EXAMINATION: VITAL SIGNS: Temperature is 98.2, pulse 120/80 , blood pressure 107/55, respiratory rate 20. HEENT: Head normocephalic, atraumatic. Eyes: PERRLA. Extraocular movements intact. Conjunctivae clear. Nose patent. Mucous membranes moist. NECK: Supple. No carotid bruit, no JVD, no thyromegaly. CHEST: Bilaterally symmetrical. HEART: S1, S2 positive. LUNGS: Clear to auscultation. ABDOMEN: Soft. Bowel sounds positive. No organomegaly. EXTREMITIES: No edema, no cyanosis. NEUROLOGIC: The patient is awake, alert, moving all 4 extremities. No focal deficits. MEDICATIONS: DuoNeb, Pyridium put today, Rocephin, Singulair, Tegretol, multivitamin, Tylenol. LABORATORIES: We do not have recent labs today, but I reviewed old labs. ASSESSMENT AND PLAN: The patient is a 41-year-old lady, urinary tract infection with salmonella group C in the patient with history of multiple urinary tract infection episodes in the patient with neurogenic bladder and doing self-catheterization. The patient has spina bifida, history of asthma and bronchitis, history of pneumonia, right eye blindness, basal cell carcinoma , status post cholecystectomy. Today is Rocephin day 5. Renal ultrasound did not show any hydronephrosis or nephrolithiasis. we checked, does not show any acute pathology. We will continue following clinically. Gastrointestinal and deep venous thrombosis prophylaxis. Waiting for urologist input. Continue antibiotics as per infectious disease. Will follow up. Rhea Randhawa MD cc: [id number] TT: 12/06/2016 15:26:46 Confirmation # [id number] Dictation # [id number] en MTDD
--- NOTE | 2016-12-06 17:57 | PN ---
DATE: 12/06/2016 REFERRING PHYSICIAN: . SUBJECTIVE: She is lying in the bed, head at 45 degrees. Night was unremarkable. No headache, no r hinitis. Gets short of breath. No nausea, no vomiting. Has dysuria. No leg pain or leg swelling. OBJECTIVE: GENERAL: No acute distress. VITAL SIGNS: Temp is 98, heart rate is 86, respiratory rate is 20, blood pressure 107/69, pulse ox 9 7% on room air. HEENT: Moist mucous membrane. Crowded airway. Mallampati score is 4. NECK: Supple. No JVD. LUNGS: Has a fair airflow with few rhonchi. HEART: S1 and S2. ABDOMEN: Soft and nontender. No organomegaly. EXTREMITIES: There is no edema. NEUROLOGIC: Awake, alert, follows simple commands. MEDICATIONS: She is on DuoNeb q. 6 hours p.r.n., pyridium 200 mg , Rocephin 1 g IV daily, Singu lair 10 mg daily, Tegretol mg twice a day, multivitamins daily, Tylenol on p.r.n. basis. LABORATORY DATA: Shows no new lab is available since yesterday. IMPRESSION AND PLAN: Recurrent urinary tract infection with dysuria, neurogenic bladder, spina bifid a, chronic obstructive lung disease, may have sleep apnea syndrome. Case discussed with Dr. Edis branch his morning. Pyridium is started for dysuria. On antibiotics. Keep head elevated at 45 degrees. Ga stric prophylaxis. Deep venous thrombosis prophylaxis. Sleep apnea precautions. Careful with sedat ion. Thank you and we will follow with you. Marin Olvera MD cc: [id number] TT: 12/06/2016 17:56:51 Confirmation # [id number] Dictation # [id number] ln
--- NOTE | 2016-12-06 20:09 | PN ---
DATE: 12/06/2016 HISTORY OF PRESENT ILLNESS: The patient seen earlier this morning in room 366, bed 1. She is still having dysuria and frequency. More so, frequency more of a concern; however, dysuria is also present . PHYSICAL EXAMINATION: VITAL SIGNS: Temperature of 97, blood pressure is 130/70, respiratory rate of 18, heart rate of 119. HEENT: Unremarkable. NECK: Supple. LUNGS: Decreased breath sounds bilaterally. HEART: Normal S1, S2. ABDOMEN: Soft, nontender. LABORATORY DATA: Reveals a white count of 8.9, hemoglobin of 13. Chemistries reveal the BUN of 11, creatinine of 0.5. Urinalysis is noted. Microbiology reveals a salmonella group C in the urine. Bl ood cultures are no growth. ASSESSMENT AND PLAN: A 41-year-old female with a group C urinary tract infection and continues to rueda ve dysuria. Currently on ceftriaxone day #4. Dr. Olvera's note is reviewed. Review of the orders c onfirms the ceftriaxone to be active. Chavo Frank MD cc: [id number] TT: 12/06/2016 20:08:46 Confirmation # [id number] Dictation # [id number] ln
--- NOTE | 2016-12-07 09:06 | PCM.URO ---
Urology Progress Note - Objective Intake & Output: Intake & Output 12/06/16 12/07/16 12/07/16 18:59 06:59 18:59 Intake Total 1140 1420 120 Balance 1140 1420 120 Weight 216 lb Intake: Oral 1140 1420 120 Other: # Voids Urine, Voided 2 3 3 # Bowel Movements 3 2 0 Vital Signs: Vital Signs - 24 hr 12/06/16 12/07/16 16:00 08:15 Temperature 98 F 97.9 F Pulse Rate 119 H 91 H Respiratory 20 20 Rate Blood Pressure 131/81 114/70 O2 Sat by Pulse 96 95 Oximetry
[2016-12-07] MEDS: cefTRIAXone 1 gm 1 GM/100 ML BAG IVPB SCH (09:23)
[2016-12-07] MEDS: Multivitamin Therapeutic Tab PO SCH (09:24)
--- NOTE | 2016-12-07 17:29 | CP.PCM.PN ---
Subjective - Date & Time of Evaluation Date of Evaluation: 12/07/16 Time of Evaluation: 09:35 - Subjective Subjective: Still with burning sensation during catheterization, but a little better, no fevers. Objective - Vital Signs/Intake and Output Vital Signs (last 24 hours): Temp Pulse Resp BP Pulse Ox 97.9 F 91 H 20 114/70 95 12/07/16 08:15 12/07/16 08:15 12/07/16 08:15 12/07/16 08:15 12/07/16 08:15 Intake and Output: 12/07/16 12/07/16 06:59 18:59 Intake Total 1420 120 Balance 1420 120 - Medications Medications: Current Medications Acetaminophen (Tylenol 325mg Tab) 650 mg PO Q6H PRN PRN Reason: Pain, moderate (4-7) Last Admin: 12/06/16 02:17 Dose: 650 mg Albuterol/Ipratropium (Duoneb 3 Mg/0.5 Mg (3 Ml) Ud) 3 ml IH [id number] PRN PRN Reason: Shortness of Breath Carbamazepine (Tegretol) 300 mg PO Q12 [facility]ILVER PRN Reason: Protocol Last Admin: 12/06/16 21:47 Dose: 300 mg Ceftriaxone Sodium (Rocephin 1 Gram Ivpb) 1 gm in 100 mls @ 100 mls/hr IVPB DAILY [facility] PRN Reason: Protocol Last Admin: 12/06/16 10:27 Dose: 100 mls/hr Montelukast Sodium (Singulair) 10 mg PO HS [facility] Last Admin: 12/06/16 21:47 Dose: 10 mg Multivitamins (Thera Tab) 1 tab PO DAILY [facility] Last Admin: 12/06/16 10:27 Dose: 1 tab Phenazopyridine HCl (Pyridium) 200 mg PO PC [facility] Stop: 12/08/16 10:01 Last Admin: 12/06/16 17:01 Dose: 200 mg - Labs Labs: 12/04/16 07:00 12/04/16 07:00 PT 10.4 Seconds (9.9-11.8) 12/01/16 12:30 INR 0.96 (0.93-1.08) 12/01/16 12:30 APTT 27.8 Seconds (23.7-30.8) 12/01/16 12:30 - Constitutional Appears: Non-toxic, No Acute Distress - Head Exam Head Exam: NORMAL INSPECTION - ENT Exam ENT Exam: Mucous Membranes Moist - Neck Exam Neck Exam: absent: Lymphadenopathy, Meningismus - Respiratory Exam Respiratory Exam: Decreased Breath Sounds - Cardiovascular Exam Cardiovascular Exam: +S1, +S2 - GI/Abdominal Exam GI & Abdominal Exam: Soft. absent: Tenderness Assessment and Plan - Assessment and Plan (Free Text) Plan: Assessment urinary tract infection with Salmonella group C in a patient with history of multiple UTI episodes, in a patient with neurogenic bladder and chronic self- catheterization neurogenic bladder with chronic self-catheterization history of asthma and bronchitis history of pneumonia history of multiple UTI's right eye blindness history of basal cell CA S/P cholecystectomy spina bifida Plan continue Rocephin (day 6); reviewed renal ultrasound which did not show hydronephrosis or nephrolithiasis as well as CT scan of the abdomen and pelvis which does not show acute pathology will follow up Urology evaluation and recommendations will continue to monitor clinically
--- NOTE | 2016-12-07 19:48 | PN ---
DATE: 12/07/2016 REFERRING PHYSICIAN: Dr. Randhawa. SUBJECTIVE: She is sitting up in bed, having lunch. Night was unremarkable. Dysuria is a little be tter. No chest pain, no nausea, no vomiting, no diarrhea. No leg pain or leg swelling. OBJECTIVE: GENERAL: No acute distress. VITAL SIGNS: Temp is 98, heart rate is , respiratory rate is 20, blood pressure 114/70, pulse o x 95% on room air. HEENT: Moist mucous membrane. No ulcer or thrush noted. NECK: Supple. No JVD. LUNGS: Has a fair airflow with few rhonchi. HEART: S1, S2. ABDOMEN: Soft, nontender. No organomegaly. EXTREMITIES: There is no edema. NEUROLOGIC: Awake, alert, follows simple commands. MEDICATIONS: She is on DuoNeb q. 6 hours p.r.n. pyridium 20 mg added, also gets Rocephin 1 gra m daily, Singulair 10 mg daily, Tegretol 200 mg twice a daily, multivitamins daily, Tylenol on p.r.n. basis. LABORATORY DATA: No new lab is available since yesterday. IMPRESSION AND PLAN: Recurrent urinary tract infection with dysuria, neurogenic bladder, spina bifid , chronic obstructive lung disease, may have sleep apnea syndrome. Case discussed with Dr. Randhawa. Agree with the present treatment. Pyridium was added and she feels better. Sleep apnea precaution a nd bronchodilator. Gastric prophylaxis. Deep venous thrombosis prophylaxis. Discharge planning for tomorrow if feels okay. Outpatient attended sleep study and pulmonary function test. Thank you and will follow with you. Marin Olvera MD cc: [id number] TT: 12/07/2016 19:47:16 Confirmation # [id number] Dictation # [id number] ln
[2016-12-08] MEDS: cefTRIAXone 1 gm 1 GM/100 ML BAG IVPB SCH (09:30)
[2016-12-08] MEDS: Multivitamin Therapeutic Tab PO SCH (09:33)
--- NOTE | 2016-12-08 17:42 | PN ---
DATE: 12/08/2016 REFERRING PHYSICIAN: Dr. Randhawa. SUBJECTIVE: She is sitting up in bed, having lunch. Night was unremarkable. No cough, no sputum pr oduction. Admits to have snoring, daytime sleepy and tired. No nausea, no vomiting. Still has dysu greyson. No leg pain or leg swelling. OBJECTIVE: GENERAL: In no acute distress. VITAL SIGNS: Temp is 99, heart rate is 101, respiratory rate is 20, blood pressure 127/91, pulse ox 94% on room air. HEENT: Moist mucous membranes. Crowded airway. NECK: Short, thick neck. LUNGS: Has a fair airflow with rhonchi. HEART: S1, S2. ABDOMEN: Soft, nontender. No organomegaly. EXTREMITIES: No edema. NEUROLOGIC: Awake, alert, follows simple commands. MEDICATIONS: She is on DuoNeb q.6 hours p.r.n., Rocephin 1 g IV daily, Singulair 10 mg daily, Tegret ol 300 mg twice a day, multivitamins daily. LABORATORY DATA: Shows no new lab is available since yesterday. IMPRESSION AND PLAN: Recurrent urinary tract infection with dysuria, , spina bifida, chronic ob structive lung disease, may have sleep apnea syndrome. Pulmonary point of view, she is doing well. Continue p.r.n. bronchodilators. Continue antibiotics. Continue Pyridium. Gastric prophylaxis. SC Ds to lower extremities. Discharge planning. Outpatient PFT and sleep study. Thank you and will follow with you. Marin Olvera MD cc: [id number] TT: 12/08/2016 17:41:44 Confirmation # [id number] Dictation # [id number] dn
--- NOTE | 2016-12-08 18:16 | PN ---
DATE: 12/08/2016 The patient is in bed in no acute distress and nontoxic. No fevers and chills. PHYSICAL EXAMINATION: VITAL SIGNS: Temperature is 97, blood pressure is 120/90, respiratory rate of 20 and heart rate of 1 08. HEENT: Unremarkable. NECK: Supple. LUNGS: Have decreased breath sounds. HEART: Normal S1, S2. ABDOMEN: Soft. LABORATORY DATA: Reveals a white count of 8.9 and hemoglobin of 13. BUN of 11 and creatinine of 0.5 . Urinalysis is noted and too numerous to count. Microbiology reveals salmonella group C. The blood cultures are negative. ASSESSMENT AND PLAN: A 41-year-old female with salmonella group C urinary tract infection. Continue s to have symptoms on ceftriaxone day #7. We will repeat a urinalysis and urine culture. The patien t's symptoms continue to persist of dysuria. Chavo Frank MD cc: [id number] TT: 12/08/2016 18:15:17 Confirmation # [id number] Dictation # [id number] sn
[2016-12-08 22:09] LABS: PH,URINE 6.5 (4.7-8.0); URINE BILIRUBIN NEGATIVE (NEGATIVE); URINE BLOOD TRACE-INTACT (NEGATIVE); URINE GLUCOSE (UA) NEGATIVE (NEGATIVE); URINE KETONE NEGATIVE (NEGATIVE); URINE LEUKOCYTE ESTERASE SMALL Leu/uL (NEGATIVE); URINE PROTEIN NEGATIVE mg/dL (<30 mg/dL); URINE UROBILINOGEN 0.2 E.U./dL (<1 E.U./dL)
[2016-12-08 22:11] LABS: URINE APPEARANCE CLEAR (CLEAR); URINE COLOR YELLOW (YELLOW)
[2016-12-08 22:16] LABS: URINE RBC 0 - 2 /hpf (0-2)
[2016-12-08 22:17] LABS: URINE BACTERIA FEW (NEG)
[2016-12-09] MEDS: Multivitamin Therapeutic Tab PO SCH (10:35)
[2016-12-09] MEDS: cefTRIAXone 1 gm 1 GM/100 ML BAG IVPB SCH (10:35)
--- NOTE | 2016-12-09 15:21 | PN ---
DATE: 12/09/2016 The patient is in bed, no acute distress, nontoxic. PHYSICAL EXAMINATION: VITAL SIGNS: Temperature is 98, blood pressure is 100/50, respiratory rate of 18. HEENT: Unremarkable. NECK: Supple. LUNGS: Have decreased breath sounds. HEART: Normal S1, S2. ABDOMEN: Soft, nontender. LABORATORY EXAMINATION: Reveals a white count of 8.9, hemoglobin of 13. BUN of 11, creatinine of 0. 5. Urinalysis reveals the repeat urinalysis to have 1-3 WBCs. Microbiology reveals the patient's re peat urine culture is pending. Initially, patient grew salmonella in urine culture. Blood cultures are negative. ASSESSMENT AND PLAN: A 41-year-old female with a group C salmonella urinary tract infection who cont inues to have symptoms at this time. On examination, the nurse examining the patient's vaginal area states there are no herpetic lesions, no other lesions to explain the persistence of dysuria in this patient who is on day #8 of ceftriaxone. Urology is on consult. Perhaps, a TRADE EMBALMER would be able to off er us assistance in examining the patient, TRADE EMBALMER to guide us through why she persistently has dysuria. Her symptoms have not improved after 8 days of ceftriaxone for salmonella. The patient has had a CA T scan of the abdomen and pelvis on the 6th, which is reviewed. Chavo Frank MD cc: [id number] TT: 12/09/2016 15:21:22 Confirmation # [id number] Dictation # [id number] en
--- NOTE | 2016-12-09 17:49 | PN ---
DATE: 12/09/2016 REFERRING PHYSICIAN: Dr. Randhawa. SUBJECTIVE: She is out of bed to chair. Night was unremarkable, having lunch. No headache, no rhin itis. Short of breath with exertion. No abdominal pain. Still has dysuria. No leg pain or leg swe lling. OBJECTIVE: GENERAL: No acute distress. VITAL SIGNS: Temp is 98, heart rate is 92, respiratory rate is 20, blood pressure 99/54, pulse ox 95 % on room air. HEENT: Moist mucous membrane. Crowded airway. Mallampati score is 4. NECK: Supple. No JVD. LUNGS: Has fair airflow with few rhonchi. HEART: S1, S2. ABDOMEN: Soft, nontender. No organomegaly. EXTREMITIES: No edema. NEUROLOGIC: Awake, alert, follows simple commands. MEDICATIONS: She is on albuterol-Atrovent nebulizer q. 6 hours p.r.n., Rocephin 1 gram daily, Singul air 10 mg daily, Tegretol 300 mg twice a day, multivitamins daily. LABORATORY DATA: Reviewed. No new lab is available. IMPRESSION AND PLAN: Recurrent urinary tract infection with dysuria, spina bifida, chronic obstructi ve lung disease, may have sleep apnea syndrome. Persistent dysuria. Seen by infectious diseases and urology. Pyridium was there, but probably fell off. Will restart it. Gastric prophylaxis. Sequent ial compression devices to lower extremities. Outpatient attended sleep study and PFT. Thank you an d will follow with you. Marin Olvera MD cc: [id number] TT: 12/09/2016 17:48:36 Confirmation # [id number] Dictation # [id number] brittney
--- NOTE | 2016-12-10 07:51 | PN ---
DATE: 12/09/2016 SUBJECTIVE: The patient was seen and examined on the bedside, sitting on the chair, having lunch. Still complaining about dysuria and flank pain. No headache, no fever, no rhinitis. No shortness of breath. No swelling of the legs. Appreciated Dr. Frank's and Dr. Olvera's input. PHYSICAL EXAMINATION: VITAL SIGNS: Temperature 98, heart rate 92, respiratory rate 20, blood pressure 100/50, pulse oximetry 95% room air. HEENT: Head normocephalic, atraumatic. Eyes: PERRLA. Extraocular muscles intact. Conjunctivae are clear. Nose patent. Mucous membranes moist. NECK: Supple. No carotid bruit. No JVD or thyromegaly. CHEST: Bilaterally symmetrical. HEART: S1, S2 positive. LUNGS: Clear to auscultation. ABDOMEN: Soft. Bowel sounds present. No organomegaly. EXTREMITIES: No edema, no cyanosis. NEUROLOGIC: The patient is awake, alert; moving all 4 extremities. No focal deficit. MEDICATIONS: Albuterol, Rocephin, Singulair, Tegretol, multivitamins. LABORATORY DATA: We do not have recent labs today, but I reviewed old labs. ASSESSMENT AND PLAN: The patient is a 41-year-old female with spina bifida, neurogenic bladder, recurrent urinary tract infection with dysuria, chronic obstructive lung disease. The patient has sleep apnea syndrome. The patient cannot pee by herself, but she has been self-catheterizing. She completed 2 courses of antibiotics as outpatient. Now in the hospital she is taking Rocephin more than 1 week, but still has persistent burning . I see that infectious disease is trying hard, but I am not having any input from the urologist. Gastric prophylaxis, DVT prophylaxis. Dr. Frank did patient's examination in the presence of nurse. Cannot see any lesion like herpes or something. Wanting to involve gynecology. Maybe we can get answer of her dysuria. The patient had CAT scan of abdomen and pelvis on 12/04/2016, appreciated. Cannot see any cause of dysuria again. Plenty of water. Will follow up. Rhea Randhawa MD cc: [id number] TT: 12/10/2016 07:51:21 Confirmation # [id number] Dictation # [id number] roger GATICA
--- NOTE | 2016-12-10 08:36 | PN ---
DATE: 12/08/2016 SUBJECTIVE: The patient was seen and examined at the bedside. As per patient still she is having a burning sensation . Is getting relieved with Tylenol and Pyridium. The patient was seen by Dr. Alejandro Armstrong but I am not seeing any of his documentation. ID is on the case. The patient is getting antibiotics. No fever, no chills. No nausea, vomiting, or diarrhea. No hematochezia. No swelling of the leg. No chest pain or palpitations. PHYSICAL EXAMINATION: VITAL SIGNS: Temperature 99, heart rate 80 , respirations 20, blood pressure 127/90, EYES: PERRLA. EOMs intact. Pale conjunctivae. Nose patent. Mucous membranes moist. NECK: Supple. No carotid bruit, JVD or thyromegaly. CHEST: Bilaterally symmetrical. HEART: S1, S2 positive. LUNGS: Clear to auscultation. ABDOMEN: Soft. Bowel sounds are present. No organomegaly. EXTREMITIES: No edema, no cyanosis. NEUROLOGIC: The patient is awake, alert and moving all 4 extremities, no focal deficits. MEDICATIONS: Singulair, Tegretol, Multivitamin. LABORATORY DATA: noted ASSESSMENT AND PLAN: The patient is a 41-year-old female with urinary tract infection, still has burning and lower abdominal type pain, has spina bifida, chronic obstructive lung disease, sleep apnea syndrome. Gastric prophylaxis, SCDs to lower extremities. Discussion done with the nursing staff about the patient's burning sensation and flank pain. Discontinue Tylenol and want to see how is the scale of the pain. Waiting for urology input. Will followup. Rhea Randhawa MD cc: [id number] TT: 12/08/2016 20:21:57 Confirmation # [id number] Dictation # [id number] kvng GATICA
[2016-12-10] MEDS: cefTRIAXone 1 gm 1 GM/100 ML BAG IVPB SCH (08:59)
[2016-12-10] MEDS: Multivitamin Therapeutic Tab PO SCH (09:00)
[2016-12-10 10:29] LABS: HEMATOCRIT 39.9 % (36.0-48.0); MEAN CELL VOLUME 86.9 fL (80.0-105.0); MEAN CORPUSCULAR HGB CONC 33.3 g/dl (31.0-37.0); MEAN PLATELET VOLUME 9.2 fl (7.0-11.0); RED CELL DISTRIBUTION WIDTH 14.2 % (11.5-14.5); WHITE BLOOD COUNT 8.8 10^3/ul (4.5-11.0)
[2016-12-10 10:43] LABS: BLOOD UREA NITROGEN 11 mg/dL (7-21); CALCIUM 9.3 mg/dL (8.4-10.5); CARBON DIOXIDE 22 mmol/L (21-33); CHLORIDE 102 mmol/L (98-107); GFR AFRICAN-AMERICAN > 60; GLUCOSE,RANDOM 169 mg/dL (70-110); POTASSIUM 4.2 mmol/L (3.6-5.0); SODIUM 135 mmol/L (132-148)
[2016-12-10] MEDS ORDERED: cefTRIAXone (Rocephin) 1 gm Inj ONE (13:41)
[2016-12-10] MEDS ORDERED: Iohexol 240 (50 ml) ONE (13:41)
[2016-12-10] MEDS ORDERED: Propofol 10 mg/ml Inj (20 ML) ONE (14:22)
[2016-12-10] MEDS ORDERED: Midazolam 2 MG/2 ML VIAL ONE (14:22)
--- NOTE | 2016-12-10 15:03 | PCM.URO ---
Urology Progress Note - Objective Lab Results Last 24 Hours: Laboratory Results - last 24 hr 12/10/16 12/10/16 09:45 09:45 WBC 8.8 RBC 4.59 Hgb 13.3 Hct 39.9 MCV 86.9 MCH 29.0 MCHC 33.3 RDW 14.2 Plt Count 353 MPV 9.2 Sodium 135 Potassium 4.2 Chloride 102 Carbon Dioxide 22 Anion Gap 15 BUN 11 Creatinine 0.5 Est GFR ( Amer) > 60 Est GFR (Non-Af Amer) > 60 Random Glucose 169 H Calcium 9.3 Intake & Output: Intake & Output 12/09/16 12/10/16 12/10/16 18:59 06:59 18:59 Intake Total 360 500 480 Balance 360 500 480 Intake: IV 0 Oral 360 500 480 Other: # Voids Urine, Voided 1 3 2 # Bowel Movements 1 0 Vital Signs: Vital Signs - 24 hr 12/09/16 12/10/16 12/10/16 17:00 08:34 13:50 Temperature 98.5 F 98.6 F 98.6 F Pulse Rate 100 H 100 H 85 Respiratory 16 20 20 Rate Blood Pressure 134/96 H 133/76 136/62 O2 Sat by Pulse 96 95 97 Oximetry
[2016-12-10] MEDS ORDERED: Lactated Ringer's 1,000 ML IV SCH (15:25)
[2016-12-10] MEDS ORDERED: Albuterol-Ipratrop 3 mg / 0.5 (3 ml) UD IH PRN (16:37)
--- NOTE | 2016-12-10 17:18 | CP.PCM.PN ---
Subjective - Date & Time of Evaluation Date of Evaluation: 12/10/16 Time of Evaluation: 10:55 - Subjective Subjective: Patient is still having burning urinary sensation, no fevers overnight. Objective - Vital Signs/Intake and Output Vital Signs (last 24 hours): Temp Pulse Resp BP Pulse Ox 98.6 F 100 H 20 133/76 95 12/10/16 08:34 12/10/16 08:34 12/10/16 08:34 12/10/16 08:34 12/10/16 08:34 Intake and Output: 12/10/16 12/10/16 06:59 18:59 Intake Total 500 Balance 500 - Medications Medications: Current Medications Albuterol/Ipratropium (Duoneb 3 Mg/0.5 Mg (3 Ml) Ud) 3 ml IH [id number] PRN PRN Reason: Shortness of Breath Carbamazepine (Tegretol) 300 mg PO Q12 [facility]ILVER PRN Reason: Protocol Last Admin: 12/09/16 21:23 Dose: 300 mg Ceftriaxone Sodium (Rocephin 1 Gram Ivpb) 1 gm in 100 mls @ 100 mls/hr IVPB DAILY WILVER PRN Reason: Protocol Last Admin: 12/09/16 10:35 Dose: 100 mls/hr Montelukast Sodium (Singulair) 10 mg PO HS [facility] Last Admin: 12/09/16 21:23 Dose: 10 mg Multivitamins (Thera Tab) 1 tab PO DAILY [facility]IL[facility] Last Admin: 12/09/16 10:35 Dose: 1 tab Phenazopyridine HCl (Pyridium) 200 mg PO PC [facility] Last Admin: 12/09/16 17:55 Dose: 200 mg - Labs Labs: 12/04/16 07:00 12/04/16 07:00 PT 10.4 Seconds (9.9-11.8) 12/01/16 12:30 INR 0.96 (0.93-1.08) 12/01/16 12:30 APTT 27.8 Seconds (23.7-30.8) 12/01/16 12:30 - Constitutional Appears: Non-toxic, No Acute Distress - Head Exam Head Exam: NORMAL INSPECTION - Neck Exam Neck Exam: absent: Meningismus - Respiratory Exam Respiratory Exam: Decreased Breath Sounds - Cardiovascular Exam Cardiovascular Exam: +S1, +S2 - GI/Abdominal Exam GI & Abdominal Exam: Soft. absent: Tenderness Assessment and Plan - Assessment and Plan (Free Text) Plan: Assessment urinary tract infection with Salmonella group C in a patient with history of multiple UTI episodes, in a patient with neurogenic bladder and chronic self- catheterization; R/O vaginitis neurogenic bladder with chronic self-catheterization history of asthma and bronchitis history of pneumonia history of multiple UTI's right eye blindness history of basal cell CA S/P cholecystectomy spina bifida Plan continue Rocephin (day 9) - to complete a 10-14 day course; reviewed renal ultrasound which did not show hydronephrosis or nephrolithiasis as well as CT scan of the abdomen and pelvis which does not show acute pathology will follow up OB-Plugman evaluation will continue to monitor clinically
--- NOTE | 2016-12-10 18:40 | CON ---
DATE: 12/07/2016 REQUESTING PHYSICIAN: Apparently is Dr. Rhea Randhawa. Urology consult for "dysuria." (See below for further details regarding the actual consultation.) This is a very pleasant 41-year-old lady. She has a history of spina bifida. She had multiple surgi fe interventions for various reasons, mostly done at the [facility] and [facility]. She was actually born in [place] at the "[facility]. She had spina bifida that was diagnosed and multiple surgical procedures done for assistance. From a urology standpoint, she is on intermittent catheterization. She has had 2 or 3 or more urologists o yeni time that she can remember. She does not remember the names of really any of them, but all treat ed locally. She does not recall having been referred out to a center for neurogenic bladders or spin a bifida. She has not been to a urologist in a while. She is on intermittent catheterization now. She is in [facility] with multiple issues. From a urology standpoint, there are other consultants seeing her. She is being seen by Dr. Pauline traylor from infectious disease, seen by Dr. Marin Olvera from pulmonary for underlying asthma and urol ogy consult is requested for me. The patient is on intermittent catheterization. She has not seen gross hematuria currently. See the urinalysis and cultures. Urology is consulted for further recommendations. See our plans listed below. PAST MEDICAL AND SURGICAL HISTORY: As listed and otherwise as mentioned above. Otherwise, unremarka ble. MEDICATIONS: See the chart. She is on Pyridium already. She is on ceftriaxone. She is on albutero l. As mentioned above, she has multiple consultants seeing her. ALLERGIES: REVIEW OF SYSTEMS: Listed above. PHYSICAL EXAMINATION: GENERAL: Well-nourished female. Body habitus is noted. She is resting comfortably. ABDOMEN: Very difficult to evaluate for distention, but there is no gross obvious distention, no steve l CVA tenderness appreciated. PELVIC: Deferred until the time of cystoscopy. The plan is listed below. LABORATORIES: See chart. Cultures urinalysis, etc. all listed. DIAGNOSES: 1. Voiding dysfunction and dysuria and she is on intermittent catheterization. 2. Underlying hematuria. PLAN: Is as follows: She is a 41 years old. I discussed options with the patient. From a urology standpoint she should have a workup including upper tract imaging with ultrasounds, in cluding at some point a cystoscopy and evaluation, even just an exam under anesthesia. Make sure there are no other abnormalities, particularly if she is on intermittent catheterization, r ule out the possibility for a squamous cell carcinoma developing or any signs from a chronic infectio n. As I discussed with the patient in great detail, I think that she can be managed as an outpatient and at this point from a urology standpoint, depending on her medical status if there is a medical reaso n to keep her inpatient, but if not, we would recommend outpatient followup. I gave the patient my c aletha. We will encourage her to come to the office for an outpatient followup. From a urology standpoint, the patient is cleared for discharge, and then further plans can follow. ADDENDUM FOR DOCUMENTATION PURPOSES FOR THE CHART: I received a phone call on 12/06/2016 on the [facility] for this consult from this physician office secretary on . I then requested to speak to the nurse to learn that there was a consult placed on 12/01. Further evaluation and investigation led me to find out that there is a note in the computer that say s the "service" was called. I then requested that the nurse call my office and then called me back. There is no service. The machine in no uncertain terms gives clear instructions that if there is an y doctor, any hospital, even if it is not an emergency to be using my cellphone. I have no phone calls to my cellphone. I have no phone calls to my office either that left a message as from my physician office secretary retrieving messages on Saturday the next time in the office. I have sent a notification to the consulting physician to request a consult previously and again now that since we have cell phones and she has mine particularly to contact me by way of cellphone for no tification, so that there are no delays in care for patients. Anyway, in this case it does not matter. Our recommendation would be for an outpatient followup and the patient has no subsequent consequence, but just for good record keeping I would like this to be p laced on the chart and, therefore, I am placing it in the patient's chart record. We will discuss further options with you. Alejandro Armstrong MD cc: [id number] TT: 12/10/2016 18:39:32 Confirmation # [id number] Dictation # [id number] mn
--- NOTE | 2016-12-10 18:57 | RAD ---
PROCEDURE: Fluoroscopy up to 1 hr. HISTORY: cystogram bilateral COMPARISON: None TECHNIQUE: Standard FINDINGS: Total fluoroscopic time (continuous mode) utilized during the procedure: 19 seconds. IMPRESSION: Less than 1 hr fluoroscopic time utilized during performance of the procedure.
--- NOTE | 2016-12-10 20:21 | OP ---
PROCEDURE DATE: 12/10/2016 Please see the consult dated 12/07. Today is 12/10. The previously dictated consult was the request for severe dysuria. PREOPERATIVE DIAGNOSES: Dysuria, voiding dysfunction, neurogenic bladder. POSTOPERATIVE DIAGNOSES: Dysuria, voiding dysfunction, neurogenic bladder. PROCEDURE: Cystoscopy, exam under anesthesia, cystoscopy, bilateral retrograde pyelograms, and bladd er biopsy and fulguration. COMPLICATIONS: There were no complications. BLOOD LOSS: Less than 10 mL. INDICATIONS: See history and physical for the details and consultation. See the previously dictated consult note from 12/07. The patient is in the hospital with dysuria. There must be some other medical issues of value in thi s patient. I received a phone call from the nursing staff. On 12/[address] Randhawa would request inpatient workup. I left Dr. Randhawa a message. After thinking about different options, it may be difficult for the patient to travel, and therefore, we are bringing her to the operating room now as an inpatient for the above listed procedure. (There is one other component that cannot be done to my knowledge in the hospital anymore. It is urodynamic study, but we will set this side for now, because anyway with the patient with hemat uria and dysuria on already intermittent catheterization, the patient does require a workup with cyst oscopic evaluation, which we did above.) PROCEDURE: Cystoscopy, exam under anesthesia, cystoscopy, bilateral retrograde pyelograms. BLOOD LOSS: Less than 10 mL. OPERATIVE FINDINGS: Our operative findings are as follows. The urethra is a little hidden. But it is able to be found. There is no meatal stenosis. No abnormalities appreciated. The bladder mucosa is again it is stained with orange. But the other thing is there is a lot of just chronic redness and erythema. I took multiple pictures , but this is concerning for carcinoma in situ. There is no definite polyp or large tumors. But definitely a concern for . Thus, given the history and physical. The ureteral orifices are visualized and there are retrograde pyelograms performed. The upper tracts looked normal. Ureters look normal. So, the diagnosis is then as follows. DESCRIPTION OF PROCEDURE: After obtaining informed consent, the patient was placed on the table, rou gretel monitors placed, and the patient gives her own consent form. She is placed on the table. Timeouts were called to confirm the patient and positioning. The patient is already on Rocephin. No extra antibiotics were given. We adjusted the table very well because of her body habitus. Gently, carefully. And then she was given more further anesthesia. But to make sure that we positioned her well. We did such. A steam conditioner operator film does not reveal any specific major abnormalities. Within her urinary bladder and pelvic region, we note the presence. At this point, we have a Ramírez. We had the cystoscope introduced via the urethra. It is somewhat difficult. The urethra was a little hidden. There are no blockages, there is no meatal stenosis, no abnormalities; it is just a little hidden and a little off centered. Once we did this, we inspected the bladder carefully, and what we see are some areas of erythema. 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 But we need to be certain. See below. Because we did a biopsy of this. Ureter were identified. Retrograde pyelograms were performed. Bilateral retrograde pyelograms are w ithin normal limits. No appreciable abnormalities. We then sampled one of the pictures that we had taken. We sampled it with the biopsy forceps. Using the flexible biopsy fulgurated. We were well away from any orifices, well away from anything anteriorly. It is just mostly posterior just to confirm. Bladder was emptied. Exam under anesthesia revealed essentially normal external genitalia, may be a mild . There are no other abnormalities. The patient tolerated this without complication. ADDENDUM: I will again reach out to Dr. Randhawa. Primary doctor and again from a urology standpoint, I have explained to the patient our operative fin dings and the plans and recommendations are that she would as soon as she is medically clear and stab le for discharge, she can go home. I will consider with the patient the possibility for medication, may be an anticholinergic medication may benefit the patient. We will discuss all the different options with the patient, the risks, benefits, treatment and altern atives. To be discussed. And we will follow along while she is here, but otherwise, we will have her come to the office as an outpatient. I did discuss with her again as initially with the possibility with her limited mobility to bring her to our [place] office where we have much more handicapped friendly situations. Alejandro Armstrong MD cc: [id number] TT: 12/10/2016 20:20:53 mn
--- NOTE | 2016-12-11 02:47 | PN ---
DATE: 12/10/2016 REFERRING PHYSICIAN: Dr. Randhawa. SUBJECTIVE: She is out of bed to chair. Night was unremarkable. Seen by Dr. Randhawa, [employer] SUPERINTENDENT, doing call because of persistent dysuria. No headaches, no rhinitis, no cough. No cough, no sputum production, intermittent snoring at nighttime. No leg pain or leg swelling. OBJECTIVE: GENERAL: No acute distress. VITAL SIGNS: Temperature is 98, heart rate is 92, respiratory rate is 20, blood pressure 113/ , pulse ox 96% on 3 liters nasal cannula. HEENT: Moist mucous membranes. Crowded airway. Mallampati score is 4. NECK: Short, thick neck. LUNGS: Has a fair airflow with few rhonchi. HEART: S1 and S2. ABDOMEN: Soft, nontender. No organomegaly. EXTREMITIES: There is no edema. NEUROLOGIC: Awake, alert, follows simple command. MEDICATIONS: She is on albuterol-Atrovent nebulizer q. 6 hours, DuoNeb q. 6 hours, Pyridium 200 mg daily, Rocephin 1 g IV daily, Singulair 10 mg daily, 10 mg twice a day, multivitamins daily. LABORATORY DATA: Shows hemoglobin 13.3, hematocrit 39.9, WBC 8.4, platelet is 353. INR is 0.96. PT T is 28. Sodium 135, potassium 4.2, chloride 102, bicarbonate 22, BUN 11, creatinine 0.5, glucose is 169, calcium is 9.3. TSH is 2.11. Had a cystogram done today, which shows less than one hour of __ ___ during the performance of the procedure and it seems unremarkable. IMPRESSION AND PLAN: Recurrent urinary tract infection with dysuria, chronic obstructive lung diseas e, may have sleep apnea syndrome. Pulmonary point of view, she is doing okay. Was cleared by urolog y, seen by the [employer] SUPERINTENDENT, could be discharged home. Will need outpatient pulmonary function test and at tended sleep study just to make sure. Marin Olvera MD cc: [id number] TT: 12/11/2016 02:46:35 Confirmation # [id number] Dictation # [id number] mn
--- NOTE | 2016-12-11 07:41 | PN ---
DATE: 12/10/2016 SUBJECTIVE: The patient seen and examined on the bedside. Ready to go for cystoscopy. Still has lower abdominal pain and dysuria. No fever, no chills. No headache, no dizziness. PHYSICAL EXAMINATION: VITAL SIGNS: Temperature 98.4, pulse 92, blood pressure 113/73, respiratory rate 20. HEENT: Head normocephalic, atraumatic. Eyes: PERRLA. Extraocular muscles intact. Conjunctivae are clear. Nose patent. Mucous membrane moist. NECK: Supple. No carotid bruit, JVD or thyromegaly. CHEST: Bilaterally symmetrical. HEART: S1, S2 positive. LUNGS: Clear to auscultation. ABDOMEN: Soft. Bowel sounds present. No organomegaly. EXTREMITIES: No edema, no cyanosis. NEUROLOGIC: The patient is awake, alert, moving all 4 extremities. No focal deficits. MEDICATIONS: DuoNeb, Pyridium, Rocephin, Singulair, montelukast, Tegretol, multivitamin. LABORATORY DATA: White blood cells 8.8, hemoglobin 13.3, hematocrit is 39.9, platelets 353. Sodium 135, potassium 4.2, BUN 11, creatinine 0.5, glucose 169. ASSESSMENT AND PLAN: The patient is a 41-year-old female with multiple medical problems, hyperglycemia, history of proteinuria, glucosuria, ketonuria, hematuria, urinary tract infection. Is seen by Dr. Manuel Morel/infectious disease. Got 2 courses of p.o. antibiotics as outpatient, failed treatment. Now inpatient is getting antibiotics. Has infection with salmonella group C and the patient has history of multiple urinary tract infection episodes in a patient with a neurogenic bladder and chronic self-catheterization, rule out vaginitis. Neurogenic bladder with chronic self-catheterization, history of asthma and bronchitis and pneumonia, multiple urinary tract infections, history of right blindness, history of basal cell cancer, status post cholecystectomy, spinal bifida, neurogenic bladder. The patient is on day 9 Rocephin, to be completed from 10-14 days. Reviewed renal ultrasound which does not show any hydronephrosis or nephrolithiasis. CT scan of the abdomen and pelvis does not show any acute pathology. We called consult with Dr. Verónica Powell and she is away. Seen by Dr. Alejandro Armstrong did the cystoscopy today. According to Dr. Armstrong, diagnosis is dysuria, voiding dysfunction, neurogenic bladder. Dr. Alejandro Armstrong texted me patient's information about cystoscopy. GI and DVT prophylaxis. Repeat labs. Will follow up. Rhea Randhawa MD cc: [id number] TT: 12/11/2016 07:40:13 Confirmation # [id number] Dictation # [id number] mn EN
[2016-12-11] MEDS: cefTRIAXone 1 gm 1 GM/100 ML BAG IVPB SCH (10:13)
[2016-12-11] MEDS: Multivitamin Therapeutic Tab PO SCH (10:14)
--- NOTE | 2016-12-11 12:56 | CP.PCM.PN ---
Subjective - Date & Time of Evaluation Date of Evaluation: 12/11/16 Time of Evaluation: 10:25 - Subjective Subjective: Still with burning sensation in the urine but a little less. Objective - Vital Signs/Intake and Output Vital Signs (last 24 hours): Temp Pulse Resp BP Pulse Ox 98.4 F 92 H 20 113/73 96 12/10/16 18:00 12/10/16 18:00 12/10/16 18:00 12/10/16 18:00 12/10/16 15:38 Intake and Output: 12/11/16 12/11/16 06:59 18:59 Intake Total 1360 Balance 1360 - Medications Medications: Current Medications Albuterol/Ipratropium (Duoneb 3 Mg/0.5 Mg (3 Ml) Ud) 3 ml IH [id number] PRN PRN Reason: Shortness of Breath Albuterol/Ipratropium (Duoneb 3 Mg/0.5 Mg (3 Ml) Ud) 3 ml IH [id number] PRN PRN Reason: Shortness of Breath Carbamazepine (Tegretol) 300 mg PO Q12 WILVER PRN Reason: Protocol Last Admin: 12/10/16 21:52 Dose: 300 mg Ceftriaxone Sodium (Rocephin 1 Gram Ivpb) 1 gm in 100 mls @ 100 mls/hr IVPB DAILY WILVER PRN Reason: Protocol Last Admin: 12/10/16 08:59 Dose: 100 mls/hr Ceftriaxone Sodium (Rocephin 1 Gram Ivpb) 1 gm in 100 mls @ 100 mls/hr IVPB DAILY WILVER PRN Reason: Protocol Montelukast Sodium (Singulair) 10 mg PO HS [facility] Last Admin: 12/09/16 21:23 Dose: 10 mg Montelukast Sodium (Singulair) 10 mg PO HS [facility] Last Admin: 12/10/16 21:53 Dose: 10 mg Multivitamins (Thera Tab) 1 tab PO DAILY [facility] Last Admin: 12/10/16 09:00 Dose: 1 tab Multivitamins (Thera Tab) 1 tab PO DAILY [facility]ILVER Phenazopyridine HCl (Pyridium) 200 mg PO PC [facility] Last Admin: 12/10/16 13:07 Dose: Not Given Phenazopyridine HCl (Pyridium) 200 mg PO PC [facility] Last Admin: 12/10/16 17:08 Dose: 200 mg - Labs Labs: 12/10/16 09:45 12/10/16 09:45 PT 10.4 Seconds (9.9-11.8) 12/01/16 12:30 INR 0.96 (0.93-1.08) 12/01/16 12:30 APTT 27.8 Seconds (23.7-30.8) 12/01/16 12:30 - Constitutional Appears: Non-toxic, No Acute Distress - Head Exam Head Exam: NORMAL INSPECTION - ENT Exam ENT Exam: Mucous Membranes Moist - Neck Exam Neck Exam: absent: Lymphadenopathy, Meningismus - Respiratory Exam Respiratory Exam: Decreased Breath Sounds - Cardiovascular Exam Cardiovascular Exam: +S1, +S2 - GI/Abdominal Exam GI & Abdominal Exam: Soft. absent: Tenderness Assessment and Plan - Assessment and Plan (Free Text) Plan: Assessment urinary tract infection with Salmonella group C in a patient with history of multiple UTI episodes, in a patient with neurogenic bladder and chronic self- catheterization; R/O vaginitis; patient underwnt cystoscopy yesterday and there was note of erythema in an area in the urethra - biopsy was done and samples sent for pathology neurogenic bladder with chronic self-catheterization history of asthma and bronchitis history of pneumonia history of multiple UTI's right eye blindness history of basal cell CA S/P cholecystectomy spina bifida Plan continue Rocephin (day 10) - to complete a 10-14 day course; reviewed renal ultrasound which did not show hydronephrosis or nephrolithiasis as well as CT scan of the abdomen and pelvis which does not show acute pathology will follow up OB-Materials Management Clerk evaluation and follow up Surgical path of the urethra sample will continue to monitor clinically
--- NOTE | 2016-12-11 13:57 | PCM.URO ---
Urology Progress Note - Objective Intake & Output: Intake & Output 12/10/16 12/11/16 12/11/16 18:59 06:59 18:59 Intake Total 480 1360 Balance 480 1360 Intake: IV 0 100 Left Forearm 100 Oral 480 1260 Other: # Voids Urine, Voided 2 1 # Bowel Movements 0 1 Vital Signs: Vital Signs - 24 hr 12/10/16 12/10/16 12/10/16 14:53 15:08 15:23 Temperature 98.4 F Pulse Rate 97 H 85 81 Respiratory 12 14 16 Rate Blood Pressure 124/72 129/72 113/71 O2 Sat by Pulse 93 L 95 97 Oximetry 12/10/16 12/10/16 12/11/16 15:38 18:00 08:59 Temperature 98.4 F 98.6 F Pulse Rate 82 92 H 89 Respiratory 17 20 19 Rate Blood Pressure 122/75 113/73 123/72 O2 Sat by Pulse 96 94 L Oximetry
--- NOTE | 2016-12-11 19:44 | PN ---
DATE: 12/11/2016 REFERRING PHYSICIAN: Dr. Randhawa. SUBJECTIVE: The patient is lying in the bed, head at 45 degrees. Night was unremarkable. Seen by randal joy yesterday. Had a cystoscopy done and found to have small erythema on the meatus which was bio psied. There is no cough, no sputum production, no nausea, no vomiting, no diarrhea. No leg pain or leg swelling. OBJECTIVE: GENERAL: No acute distress. VITAL SIGNS: Temperature is 98, heart rate is 89, respiratory rate is 20, blood pressure 123/72, pul se ox 94% on room air. HEENT: Moist mucous membranes. Crowded airway. Mallampati score is 4. NECK: Supple. No JVD. LUNGS: Have a fair airflow with rhonchi. HEART: S1, S2. ABDOMEN: Soft, nontender. No organomegaly. EXTREMITIES: There is no edema. NEUROLOGIC: Awake, alert, follows simple commands. MEDICATIONS: She is on DuoNeb q. 6 hours p.r.n., Pyridium 200 mg daily, Rocephin 1 g IV daily, Singu lair 10 mg daily, Tegretol 300 mg twice a day, multivitamins daily. LABORATORY DATA: Shows no new lab is available since yesterday. Urine culture on admission had salm onella. IMPRESSION AND PLAN: Recurrent urinary tract infections with dysuria, chronic obstructive lung disea se, may have sleep apnea syndrome. I spoke to the patient in detail. All their questions answered. Probably has inflammation at the meatus of urethra because she self- herself without any lubric ation. The patient can be discharged home on antibiotics to finish outpatient, pulmonary function te st and attended sleep study. The patient advised to use lubricant for the catheter to avoid meatus i njury. Thank you and will follow with you. Marin Olvera MD cc: [id number] TT: 12/11/2016 19:43:57 Confirmation # [id number] Dictation # [id number] brittney
--- NOTE | 2016-12-12 08:09 | PN ---
DATE: 12/11/2016 SUBJECTIVE: The patient seen and examined on the bedside, having dinner. Still complaining about burning sensation in the urine, but tenderness is less and pelvic pain, seen by me , according to patient, she has irritation of her bladder because she is doing self-catheterization. He told her to use lubricant. We called consult with gynecology. We consulted Dr. Verónica Powell, but she was away consulted Dr. Crowley, waiting for the input. PHYSICAL EXAMINATION: VITAL SIGNS: Temperature 98.4, pulse 92, respirations 20, blood pressure 113/70 , HEAD: Normocephalic, atraumatic. Eyes: PERRLA. Extraocular muscles intact. Conjunctivae are clear. Nose patent. Mucous membranes moist. NECK: Supple. No carotid bruit, JVD or thyromegaly. CHEST: Bilaterally symmetrical. HEART: S1, S2 positive. LUNGS: Clear to auscultation. ABDOMEN: Soft. Bowel sounds present. No organomegaly. EXTREMITIES: No edema, no cyanosis. NEUROLOGIC: awake, alert, moving all 4 extremities. No focal deficits. MEDICATIONS: DuoNeb, Tegretol, Rocephin, Singulair, multivitamins, Pyridium. LABORATORY DATA: White blood cells 8.8, hemoglobin 13.3, hematocrit 39.9, platelets noted . Sodium 135, potassium 4.2, BUN 11, creatinine 0.5, glucose 169. ASSESSMENT AND PLAN: The patient is a 41-year-old lady with history of spina bifida, hyperactive neurogenic bladder, does self-catheterization, multiple urinary tract infections. Now at this time, she has infection , patient with history of multiple urinary tract infection episodes . The patient underwent cystoscopy yesterday. Biopsy was done and sent the sample to pathology by Dr. Armstrong. Neurogenic bladder with self-catheterization, history of asthma, bronchitis, pneumonia, history of cholecystectomy, spinal bifida. Continue Rocephin. Today is day #10, to complete 10-14. The ultrasound is reviewed by me. Did not show any hydronephrosis, nephrolithiasis as well as . Will follow up. Gastrointestinal and deep venous thrombosis prophylaxis. Consult called with Dr. Crowley, waiting for results. Rhea Randhawa MD cc: [id number] TT: 12/11/2016 19:32:24 Confirmation # [id number] Dictation # [id number] rn MTDD
[2016-12-12] MEDS: Multivitamin Therapeutic Tab PO SCH (10:02)
[2016-12-12] MEDS: cefTRIAXone 1 gm 1 GM/100 ML BAG IVPB SCH (10:03)
--- NOTE | 2016-12-12 15:27 | PN ---
DATE: 12/12/2016 REFERRING PHYSICIAN: Dr. Randhawa. SUBJECTIVE: The patient is sitting up in bed, having lunch. Night was unremarkable. No headache, n o rhinitis, no cough, no nausea, no vomiting. Still has dysuria. No leg pain or leg swelling. OBJECTIVE: GENERAL: No acute distress. VITAL SIGNS: Temp is 98, heart is 82, respiratory rate is 20, blood pressure 123/70, pulse ox 99% on room air. HEENT: Moist mucous membranes. Crowded airway. NECK: Supple, no JVD. LUNGS: Have a fair airflow with rhonchi. HEART: S1 and S2. ABDOMEN: Soft, nontender. No organomegaly. EXTREMITIES: There is no edema. NEUROLOGIC: Awake, alert, follows simple command. MEDICATIONS: She is on DuoNeb q.6 hours, Pyridium 200 mg daily, Rocephin 1 gram daily, Singulair 10 mg daily, Tegretol 300 mg twice a day, multivitamins daily. LABORATORY DATA: Reviewed. No new lab is available since yesterday. Microbiology: Urine has caleb velez, group C IMPRESSION AND PLAN: Recurrent urinary tract infection with dysuria, obstructive lung disease, [address] sleep apnea syndrome, ____ urethritis secondary to self inserting Ramírez catheter, being followed by urology. Sleep apnea precaution. Avoid sedation. Continue bronchodilator. We will follow with you. Marin Olvera MD cc: [id number] TT: 12/12/2016 15:26:48 Confirmation # [id number] Dictation # [id number] tn
--- NOTE | 2016-12-12 21:03 | CP.PCM.PN ---
Subjective - Date & Time of Evaluation Date of Evaluation: 12/12/16 Time of Evaluation: 10:25 - Subjective Subjective: Still with the burning sensation in the urine, no fevers overnight. Objective - Vital Signs/Intake and Output Vital Signs (last 24 hours): Temp Pulse Resp BP Pulse Ox 98.8 F 82 19 96/60 L 95 12/12/16 08:16 12/12/16 08:16 12/12/16 08:16 12/12/16 08:16 12/12/16 08:16 Intake and Output: 12/12/16 12/12/16 06:59 18:59 Intake Total 460 Balance 460 - Medications Medications: Current Medications Albuterol/Ipratropium (Duoneb 3 Mg/0.5 Mg (3 Ml) Ud) 3 ml IH [id number] PRN PRN Reason: Shortness of Breath Albuterol/Ipratropium (Duoneb 3 Mg/0.5 Mg (3 Ml) Ud) 3 ml IH [id number] PRN PRN Reason: Shortness of Breath Carbamazepine (Tegretol) 300 mg PO Q12 WILVER PRN Reason: Protocol Last Admin: 12/11/16 22:00 Dose: 300 mg Ceftriaxone Sodium (Rocephin 1 Gram Ivpb) 1 gm in 100 mls @ 100 mls/hr IVPB DAILY [facility] PRN Reason: Protocol Last Admin: 12/10/16 08:59 Dose: 100 mls/hr Ceftriaxone Sodium (Rocephin 1 Gram Ivpb) 1 gm in 100 mls @ 100 mls/hr IVPB DAILY [facility] PRN Reason: Protocol Last Admin: 12/11/16 10:13 Dose: 100 mls/hr Montelukast Sodium (Singulair) 10 mg PO HS [facility] Last Admin: 12/09/16 21:23 Dose: 10 mg Montelukast Sodium (Singulair) 10 mg PO HS [facility] Last Admin: 12/11/16 22:01 Dose: 10 mg Multivitamins (Thera Tab) 1 tab PO DAILY [facility] Last Admin: 12/10/16 09:00 Dose: 1 tab Multivitamins (Thera Tab) 1 tab PO DAILY [facility] Last Admin: 12/11/16 10:14 Dose: 1 tab Phenazopyridine HCl (Pyridium) 200 mg PO PC [facility] Last Admin: 12/10/16 13:07 Dose: Not Given Phenazopyridine HCl (Pyridium) 200 mg PO PC [facility] Last Admin: 12/11/16 18:14 Dose: 200 mg - Labs Labs: 12/10/16 09:45 12/10/16 09:45 PT 10.4 Seconds (9.9-11.8) 12/01/16 12:30 INR 0.96 (0.93-1.08) 12/01/16 12:30 APTT 27.8 Seconds (23.7-30.8) 12/01/16 12:30 - Constitutional Appears: Non-toxic, No Acute Distress - Head Exam Head Exam: NORMAL INSPECTION - ENT Exam ENT Exam: Mucous Membranes Moist - Neck Exam Neck Exam: absent: Meningismus - Respiratory Exam Respiratory Exam: Decreased Breath Sounds - Cardiovascular Exam Cardiovascular Exam: +S1, +S2 - GI/Abdominal Exam GI & Abdominal Exam: Soft. absent: Tenderness Assessment and Plan - Assessment and Plan (Free Text) Plan: Assessment urinary tract infection with Salmonella group C in a patient with history of multiple UTI episodes, in a patient with neurogenic bladder and chronic self- catheterization; R/O vaginitis; patient underwnt cystoscopy yesterday and there was note of erythema in an area in the urethra - biopsy was done and samples sent for pathology neurogenic bladder with chronic self-catheterization history of asthma and bronchitis history of pneumonia history of multiple UTI's right eye blindness history of basal cell CA S/P cholecystectomy spina bifida Plan continue Rocephin (day 12) - to complete a 10-14 day course; reviewed renal ultrasound which did not show hydronephrosis or nephrolithiasis as well as CT scan of the abdomen and pelvis which does not show acute pathology will follow up OB-Mathematical Physicist evaluation and follow up Surgical path of the urethra sample will continue to follow clinically
--- NOTE | 2016-12-13 07:18 | PN ---
DATE: 12/12/2016 SUBJECTIVE: The patient seen and examined on the bedside. Looks comfortable. Burning is getting a little bit better. Night was unremarkable. No headache, no dizziness. No nausea, vomiting, or diar rogerio. No hematuria or hematochezia. No swelling of the legs. PHYSICAL EXAMINATION: VITAL SIGNS: Temperature 98.2, heart rate 82, respiratory rate 20, blood pressure 122/70, and pulse oximetry 97% room air. HEENT: Head normocephalic, atraumatic. Eyes: PERRLA. Extraocular muscles intact. Conjunctivae ar e clear. Nose patent. NECK: Supple. No carotid bruit, JVD or thyromegaly. CHEST: Bilaterally symmetrical. HEART: S1, S2 positive. LUNGS: Clear to auscultation. ABDOMEN: Soft. Bowel sounds present. No organomegaly. EXTREMITIES: No edema, no cyanosis. NEUROLOGIC: The patient is awake, alert, moving all 4 extremities. No focal deficits. MEDICATIONS: DuoNeb, Pyridium, Rocephin, Singulair, Tegretol, multivitamins. LABORATORY DATA: We do not have recent labs today, but I reviewed old labs. ASSESSMENT AND PLAN: The patient is a 41-year-old female with Escherichia coli urinary tract infecti on with dysuria, spinal bifida, neurogenic bladder, history of self-catheterization. According to Dr Delicia Armstrong, she has inflammation in the bladder due to self-catheterization. Obstructive lung disease , may have sleep apnea syndrome. Dr. Armstrong is on the case. ID is on the case. As per ID, continu e IV antibiotics. Sleep apnea precautions. Physical therapy, out of bed. Will follow up. Rhea Randhawa MD cc: [id number] TT: 12/13/2016 07:17:53 Confirmation # [id number] Dictation # [id number] roger
[2016-12-13 07:53] LABS: HEMATOCRIT 37.7 % (36.0-48.0); MEAN CELL VOLUME 87.3 fL (80.0-105.0); MEAN CORPUSCULAR HGB CONC 32.1 g/dl (31.0-37.0); MEAN PLATELET VOLUME 9.3 fl (7.0-11.0); RED CELL DISTRIBUTION WIDTH 14.2 % (11.5-14.5)
[2016-12-13 08:04] LABS: ALB/GLOB RATIO 1.3 (1.1-1.8); ALKALINE PHOSPHATASE 94 U/L (38-133); ALT/SGPT 37 U/L (7-56); AST/SGOT 18 U/L (15-39); BILIRUBIN,TOTAL 0.4 mg/dL (0.2-1.3); BLOOD UREA NITROGEN 15 mg/dL (7-21); CALCIUM 9.2 mg/dL (8.4-10.5); CARBON DIOXIDE 28 mmol/L (21-33); CHLORIDE 101 mmol/L (98-107); GFR AFRICAN-AMERICAN > 60; GLUCOSE,RANDOM 97 mg/dL (70-110); POTASSIUM 4.5 mmol/L (3.6-5.0); SODIUM 137 mmol/L (132-148); TOTAL PROTEIN 7.1 g/dL (5.8-8.3)
[2016-12-13] MEDS: Multivitamin Therapeutic Tab PO SCH (09:19)
[2016-12-13] MEDS: cefTRIAXone 1 gm 1 GM/100 ML BAG IVPB SCH (09:19)
--- NOTE | 2016-12-13 15:11 | PN ---
DATE: 12/13/2016 SUBJECTIVE: The patient was seen earlier this morning in 366, bed 1. Uneventful night. No fevers a nd no chills. No nausea, no vomiting. PHYSICAL EXAMINATION: VITAL SIGNS: Temperature is 98, blood pressure is 112/70, respiratory rate of 18. HEENT: Unremarkable. NECK: Supple. LUNGS: Have decreased breath sounds. HEART: Normal S1, S2. ABDOMEN: Soft, nontender. LABORATORY DATA: Reveals the patient's white count is noted to be 8.0 and a hemoglobin of 12, platel ets of 362. The chemistries reveal the patient to have a BUN of 15, creatinine of 0.6. Review of the orders reveals the patient to be on ceftriaxone. Dr. Randhawa's note from yesterday is herlinda oconnor. ASSESSMENT AND PLAN: A 41-year-old female with morbid obesity, body mass index of 42, seen earlier t his morning in 366, bed 1 with salmonella urinary tract infection, on ceftriaxone, in this patient wh o has a group C salmonella urinary tract infection, history of urinary tract infections in the past, neurogenic bladder, chronic self-catheterization. The patient is status post cystoscopy. Noted to h ave erythema in the area of ureter. Biopsy was done. On day #13 of ceftriaxone. Would complete 14 days and check on the biopsy results and pathology. Will follow with you. Review of the orders reve als the patient's ceftriaxone is active. Chavo Frank MD cc: [id number] TT: 12/13/2016 15:10:57 Confirmation # [id number] Dictation # [id number] mn
--- NOTE | 2016-12-13 19:11 | PN ---
DATE: 12/13/2016 REFERRING PHYSICIAN: Dr. Randhawa. SUBJECTIVE: She is sitting up in the bed, having dinner. adoption services manager are at the bedside. Feels okay. No headache, no rhinitis, mild cough, no shortness of breath, no nausea, no vomiting, no diar rogerio. Does have dysuria which is improving. OBJECTIVE: GENERAL: No acute distress. VITAL SIGNS: Temp is 98, heart rate is 89, respiratory rate is 18, blood pressure 196/59 and pulse o x 96% on room air. HEENT: Moist mucous membrane. Crowded airway. NECK: Supple. No JVD. LUNGS: Has a fair airflow with rhonchi. HEART: S1, S2. ABDOMEN: Soft, nontender. No organomegaly. EXTREMITIES: There is no edema. NEUROLOGIC: Awake, alert, follows simple command. MEDICATIONS: She is on DuoNeb q. 6 hour p.r.n., phenazopyridine 200 mg daily, Rocephin 1 g IV daily, Singulair 10 mg daily, Tegretol 300 mg twice a day, multivitamins daily. LABORATORY DATA: Shows urine culture has salmonella group C. IMPRESSION AND PLAN: Recurrent urinary tract infection probably with trauma to the urethra, history of spina bifida, chronic lung disease, may have sleep apnea syndrome. Pulmonary point of view, doing okay. Continue bronchodilator. Keep head at 45 degree. Discharge planning when cleared by infecti ous diseases. Outpatient attended sleep study and PFT. Thank you and we will follow with you. Marin Olvera MD cc: [id number] TT: 12/13/2016 19:10:27 Confirmation # [id number] Dictation # [id number] lefty
--- NOTE | 2016-12-14 07:47 | PN ---
DATE: 12/13/2016 SUBJECTIVE: The patient was seen and examined on 12/13/2016 sitting on the bed. Feeling a little bit better. No headache. No nausea, vomiting, or diarrhea. No cough, no shortness of breath. Dysuria is getting better but still there. PHYSICAL EXAMINATION: VITAL SIGNS: Temperature 98, heart rate 86, respiratory rate 18, blood pressure 193/59, pulse oximeter 98% on room air. HEENT: Head normocephalic, atraumatic. Eyes: PERRLA. Extraocular muscles intact. Conjunctivae are clear. Nose patent. Mucous membranes moist. NECK: Supple. No carotid bruit, JVD or thyromegaly. LUNGS: Have fair airflow with a few rhonchi. HEART: S1, S2 positive. ABDOMEN: Soft, nontender. No organomegaly. EXTREMITIES: No edema, no cyanosis. NEUROLOGIC: The patient is awake, alert, follows simple commands. Oriented x 3. MEDICATIONS: DuoNeb, Rocephin, Singular, Tegretol, multivitamins. LABORATORY DATA: The patient's urine has salmonella group C. ASSESSMENT AND PLAN: The patient a 41-year-old lady with obesity, spinal bifida , neurogenic bladder, self-catheterization, recurrent urinary tract infection with trauma to the ureter maybe due to self-catheterization, has sleep apnea syndrome, chronic obstructive pulmonary disease. Continue bronchodilator. Keep head elevated at 45 degree. Continue IV antibiotics as per infectious disease. Appreciated Dr. Olvera's notes. Appreciated Dr. Frank's notes also. The patient is status post cystoscopy by Dr. Armstrong. Noted erythema in the area of the ureter. Biopsies were done. Is status post 13 days of ceftriaxone. Will complete 14 days and check on the biopsy results and pathology. Will follow up. GI and DVT prophylaxis. Will follow up. Rhea Randhaaw MD cc: [id number] TT: 12/14/2016 07:46:10 Confirmation # [id number] Dictation # [id number] roger GATICA
[2016-12-14] MEDS: Multivitamin Therapeutic Tab PO SCH (09:08)
[2016-12-14] MEDS: cefTRIAXone 1 gm 1 GM/100 ML BAG IVPB SCH (09:10)
--- NOTE | 2016-12-14 09:20 | CP.PCM.PN ---
Subjective - Date & Time of Evaluation Date of Evaluation: 12/14/16 Time of Evaluation: 09:00 - Subjective Subjective: OBGYN: I was out of town and not talent acquisition operations manager when consult was requested by [employer] (no phone call placed), upon noticing this error on December 10. Nurse was called and informed to page talent acquisition operations manager doctor if immediate obgyn consult was needed, or if pt stable could follow up with me outpatient. Upon logging back in I noticed that pt has not been evaluated by obgyn. Again if consult is needed please page obgyn talent acquisition operations manager or if patient stable can follow up with me outpatient Please call if any questions or concerns Verónica Powell MD Office phone number [phone] Objective - Vital Signs/Intake and Output Vital Signs (last 24 hours): Temp Pulse Resp BP Pulse Ox 98.7 F 95 H 20 129/86 95 12/13/16 16:00 12/13/16 16:00 12/13/16 16:00 12/13/16 16:00 12/13/16 16:00 Intake and Output: 12/14/16 12/14/16 06:59 18:59 Intake Total 480 Balance 480 - Medications Medications: Current Medications Albuterol/Ipratropium (Duoneb 3 Mg/0.5 Mg (3 Ml) Ud) 3 ml IH [id number] PRN PRN Reason: Shortness of Breath Albuterol/Ipratropium (Duoneb 3 Mg/0.5 Mg (3 Ml) Ud) 3 ml IH [id number] PRN PRN Reason: Shortness of Breath Carbamazepine (Tegretol) 300 mg PO Q12 [facility] PRN Reason: Protocol Last Admin: 12/14/16 09:09 Dose: 300 mg Ceftriaxone Sodium (Rocephin 1 Gram Ivpb) 1 gm in 100 mls @ 100 mls/hr IVPB DAILY [facility] PRN Reason: Protocol Last Admin: 12/10/16 08:59 Dose: 100 mls/hr Ceftriaxone Sodium (Rocephin 1 Gram Ivpb) 1 gm in 100 mls @ 100 mls/hr IVPB DAILY [facility] PRN Reason: Protocol Last Admin: 12/14/16 09:10 Dose: 100 mls/hr Montelukast Sodium (Singulair) 10 mg PO HS [facility] Last Admin: 12/09/16 21:23 Dose: 10 mg Montelukast Sodium (Singulair) 10 mg PO HS [facility] Last Admin: 12/13/16 22:03 Dose: 10 mg Multivitamins (Thera Tab) 1 tab PO DAILY [facility] Last Admin: 12/10/16 09:00 Dose: 1 tab Multivitamins (Thera Tab) 1 tab PO DAILY [facility] Last Admin: 12/14/16 09:08 Dose: 1 tab Phenazopyridine HCl (Pyridium) 200 mg PO PC [facility] Last Admin: 12/10/16 13:07 Dose: Not Given Phenazopyridine HCl (Pyridium) 200 mg PO PC [facility] Last Admin: 12/14/16 09:12 Dose: 200 mg - Labs Labs: 12/13/16 07:00 12/13/16 07:00 PT 10.4 Seconds (9.9-11.8) 12/01/16 12:30 INR 0.96 (0.93-1.08) 12/01/16 12:30 APTT 27.8 Seconds (23.7-30.8) 12/01/16 12:30
--- NOTE | 2016-12-14 17:42 | CP.PCM.PN ---
Subjective - Date & Time of Evaluation Date of Evaluation: 12/14/16 Time of Evaluation: 10:55 - Subjective Subjective: Comfortable, afebrile, less burning sensation in the urine. Objective - Vital Signs/Intake and Output Vital Signs (last 24 hours): Temp Pulse Resp BP Pulse Ox 97.7 F 87 18 110/65 96 12/14/16 06:00 12/14/16 06:00 12/14/16 06:00 12/14/16 06:00 12/14/16 06:00 Intake and Output: 12/14/16 12/14/16 06:59 18:59 Intake Total 480 Balance 480 - Medications Medications: Current Medications Albuterol/Ipratropium (Duoneb 3 Mg/0.5 Mg (3 Ml) Ud) 3 ml IH [id number] PRN PRN Reason: Shortness of Breath Albuterol/Ipratropium (Duoneb 3 Mg/0.5 Mg (3 Ml) Ud) 3 ml IH [id number] PRN PRN Reason: Shortness of Breath Carbamazepine (Tegretol) 300 mg PO Q12 [facility] PRN Reason: Protocol Last Admin: 12/14/16 09:09 Dose: 300 mg Ceftriaxone Sodium (Rocephin 1 Gram Ivpb) 1 gm in 100 mls @ 100 mls/hr IVPB DAILY [facility] PRN Reason: Protocol Last Admin: 12/10/16 08:59 Dose: 100 mls/hr Ceftriaxone Sodium (Rocephin 1 Gram Ivpb) 1 gm in 100 mls @ 100 mls/hr IVPB DAILY [facility] PRN Reason: Protocol Last Admin: 12/14/16 09:10 Dose: 100 mls/hr Montelukast Sodium (Singulair) 10 mg PO HS [facility] Last Admin: 12/09/16 21:23 Dose: 10 mg Montelukast Sodium (Singulair) 10 mg PO HS [facility] Last Admin: 12/13/16 22:03 Dose: 10 mg Multivitamins (Thera Tab) 1 tab PO DAILY [facility] Last Admin: 12/10/16 09:00 Dose: 1 tab Multivitamins (Thera Tab) 1 tab PO DAILY [facility] Last Admin: 12/14/16 09:08 Dose: 1 tab Phenazopyridine HCl (Pyridium) 200 mg PO PC [facility] Last Admin: 06/12/17 13:07 Dose: Not Given Phenazopyridine HCl (Pyridium) 200 mg PO PC [facility] Last Admin: 12/14/16 17:05 Dose: 200 mg - Labs Labs: 12/13/16 07:00 12/13/16 07:00 PT 10.4 Seconds (9.9-11.8) 12/01/16 12:30 INR 0.96 (0.93-1.08) 12/01/16 12:30 APTT 27.8 Seconds (23.7-30.8) 12/01/16 12:30 - Constitutional Appears: Non-toxic, No Acute Distress - Head Exam Head Exam: NORMAL INSPECTION - ENT Exam ENT Exam: Mucous Membranes Moist - Neck Exam Neck Exam: absent: Meningismus - Respiratory Exam Respiratory Exam: Decreased Breath Sounds - Cardiovascular Exam Cardiovascular Exam: +S1, +S2 - GI/Abdominal Exam GI & Abdominal Exam: Soft. absent: Tenderness Assessment and Plan - Assessment and Plan (Free Text) Plan: Assessment urinary tract infection with Salmonella group C in a patient with history of multiple UTI episodes, in a patient with neurogenic bladder and chronic self- catheterization; R/O vaginitis; patient underwnt cystoscopy yesterday and there was note of erythema in an area in the urethra - biopsy was done and samples sent for pathology neurogenic bladder with chronic self-catheterization history of asthma and bronchitis history of pneumonia history of multiple UTI's right eye blindness history of basal cell CA S/P cholecystectomy spina bifida Plan on Rocephin (day 14) - to complete a 14 day course; reviewed renal ultrasound which did not show hydronephrosis or nephrolithiasis as well as CT scan of the abdomen and pelvis which does not show acute pathology Surgical path of the urethra sample could not be analyzed properly
[2016-12-14 19:16] VITALS: BP 114/77; PULSE 109; RESP 20; TEMP 98.6; O2SAT 91
--- NOTE | 2016-12-14 19:56 | PN ---
DATE: 12/14/2016 SUBJECTIVE: The patient seen and examined on the bedside, feeling better. The burning is better. No shortness of breath. No nausea, vomiting, or diarrhea. No hematuria or hematochezia. No swelling of the legs. No chest pain, no palpitations, no fever, no chills. PHYSICAL EXAMINATION: VITAL SIGNS: Temperature 97.7, pulse 57, respiratory rate 18, blood pressure 110/65, pulse oximetry 96. HEAD: Normocephalic, atraumatic. EYES: PERRLA. Extraocular muscles are intact. Conjunctivae clear. Nose is patent. NECK: Supple. No carotid bruit, JVD or thyromegaly. CHEST: Bilaterally symmetrical. HEART: S1, S2 positive. LUNGS: Clear to auscultation. ABDOMEN: Soft. Bowel sounds present. No organomegaly. EXTREMITIES: No edema, no cyanosis. NEUROLOGIC: The patient is awake, alert, moving all 4 extremities. No focal deficit. MEDICATIONS: Tegretol, Rocephin, Pyridium. LABORATORY DATA: We do not have recent labs today, but I reviewed old labs. ASSESSMENT AND PLAN: a 41-year-old lady, my private patient, has a urinary tract infection with , a history of multiple urinary tract infection episodes, failed outpatient treatment, completed a 14-days' course of Rocephin in the hospital. ID is on the case. Has a neurogenic bladder and chronic self- catheterization, history of spina bifida, rule out vaginitis as per infectious disease. The patient underwent cystoscopy. There was erythema, may be due to self-catheterization. Biopsy was done and biopsy results are still pending. Has a history of asthmatic bronchitis, history of pneumonia, right eye blindness , history of renal cell carcinoma, history of cholecystectomy. I appreciated Dr. Verónica Powell's communication. As per ID, the patient completed a 14 days' course of antibiotics. Will discharge the patient home today if cleared by the ID and follow up with the IRIDOLOGIST as an outpatient. Rule out obstructive sleep apnea syndrome. Will followup. Rhea Randhawa MD cc: [id number] TT: 12/14/2016 19:55:39 Confirmation # [id number] Dictation # [id number] [id number]
--- NOTE | 2016-12-14 21:33 | PN ---
DATE: 12/14/2016 REFERRING PHYSICIAN: Dr. Randhawa. SUBJECTIVE: She is sitting up in a bed, unremarkable today. Short of breath with exertion. No ches t pain, no nausea, no vomiting, no diarrhea. Decreased dysuria. No leg pain or leg swelling. OBJECTIVE: GENERAL: No acute distress. VITAL SIGNS: Temp is 98, heart rate is 87, respiratory rate is 20, blood pressure 110/65, pulse ox 9 6% on room air. HEENT: Moist mucous membrane. Crowded airway. NECK: Supple. No JVD. LUNGS: Has a fair airflow with few rhonchi. HEART: S1, S2. ABDOMEN: Soft, nontender. No organomegaly. EXTREMITIES: There is no edema. NEUROLOGIC: Awake, alert, follows simple commands. MEDICATIONS: Reviewed. No new changes in medication reported since yesterday. LABORATORY DATA: Reviewed. No new lab is available since yesterday. Last urine culture has gram po sitive cocci which is unremarkable growth which is 10,000-50,000 colonies ____ . IMPRESSION AND PLAN: Recurrent urinary tract infection probably has a urethral trauma, traumatic felicia lulitis, spina bifida, chronic lung disease, may have sleep apnea syndrome. Discharge planning to ho me if okay with infectious diseases. Outpatient attended sleep study, PFT. Fall precautions. Thank you and will follow with you. Marin Olvera MD cc: [id number] TT: 12/14/2016 21:33:05 Confirmation # [id number] Dictation # [id number] lefty
== END 2016-12-14 21:05 | disposition home or self-care (01) | DRG 669 ==
LOC: ED 11:49 → ERH 13:12 → 3RNO 14:35
PROVIDERS: ADMIT Internal Medicine; ATTEND Internal Medicine
PROC: BT141ZZ Fluoroscopy of Kidneys, Ureters and Bladder using Low Osmolar Contrast (ICD-10-PCS; 2016-12-10)
PROC: 0TBB8ZX Excision of Bladder, Via Natural or Artificial Opening Endoscopic, Diagnostic (ICD-10-PCS; principal; 2016-12-10 13:30)
DX: N39.0 Urinary tract infection, site not specified (principal); A02.8 Other specified salmonella infections; Z68.41 Body mass index [BMI] 40.0-44.9, adult; N31.9 Neuromuscular dysfunction of bladder, unspecified; Q05.9 Spina bifida, unspecified; R33.9 Retention of urine, unspecified; R73.9 Hyperglycemia, unspecified; J44.9 Chronic obstructive pulmonary disease, unspecified; G40.909 Epilepsy, unspecified, not intractable, without status epilepticus; G47.33 Obstructive sleep apnea (adult) (pediatric); E66.01 Morbid (severe) obesity due to excess calories; H54.41 Blindness, right eye, normal vision left eye; B96.20 Unspecified Escherichia coli [E. coli] as the cause of diseases classified elsewhere; Z87.440 Personal history of urinary (tract) infections; Z87.01 Personal history of pneumonia (recurrent); Z85.828 Personal history of other malignant neoplasm of skin; Z90.49 Acquired absence of other specified parts of digestive tract; Z85.528 Personal history of other malignant neoplasm of kidney

== ENCOUNTER 2017-02-01 13:31 | Emergency (ER) | payer OTHER ==
[2017-02-01 13:42] VITALS: BMI 41.8
[2017-02-01 13:47] VITALS: BP 136/67; PULSE 94; RESP 16; TEMP 98.7; O2SAT 97
--- NOTE | 2017-02-01 14:25 | ED PDOC ---
Arrival/HPI - General Chief Complaint: Abdominal Pain Time Seen by Provider: 02/01/17 13:51 Historian: Patient - History of Present Illness Time/Duration: Prior to Arrival Symptom Onset: Sudden Symptom Course: Improving Quality: Aching Severity Level: Mild Associated Symptoms (Text): 02/01/17 14:23 Patient reports she was at a just prior to arrival and was walking and developed abdominal pain and chest pain and back pain with some dyspnea. She also developed a nonproductive cough. No fever or chills. No injury or trauma. No genitourinary symptoms. No injury or trauma. Patient has a history of spina bifida. Past Medical History - Infectious Disease Hx of Infectious Diseases: None - Tetanus Immunization Tetanus Immunization: Unknown - Cardiac Hx Cardiac Disorders: No - Pulmonary Hx Asthma: Yes Hx Bronchitis: Yes Hx Pneumonia: Yes - Neurological Hx Seizures: Yes (last seizure 3/4 yrs ago) - HEENT Hx HEENT Disorder: Yes (eyeglasses) Hx Blind: Yes (right eye total, left eye partial) Hx Cataracts: No Hx Deafness: No Hx Difficulty Chewing: No Hx Epistaxis: No Hx Glaucoma: No Hx Macular Degeneration: No Other/Comment: recent cough and cold done 1 wk ago - Renal Hx Renal Disorder: No Hx Neurogenic Bladder: Yes (self catherization) - Endocrine/Metabolic Hx Hyperthyroidism: No Hx Hypothyroidism: No - Hematological/Oncological Hx Blood Transfusions: No Hx Blood Transfusion Reaction: No - Integumentary Hx Dermatological Disorder: Yes Hx Basal Cell Carcinoma: No Hx Eczema: No Hx Melanoma: No Hx Psoriasis: No Hx Squamous Cell Carcinoma: No Other/Comment: cellulitis, pt had wound in front of r great toe, osteomylitis, that was cared for by dr alamo in 2014 which is now healed, caused by shoes that were too tight - Musculoskeletal/Rheumatological Hx Musculoskeletal Disorders: Yes (born with spina bifida) Hx Arthritis: No Hx Falls: No Hx Fractures: No Hx Osteoporosis: No Hx Unsteady Gait: Yes (uses walker b/l leg braces) Other/Comment: multiple 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] from age 19 to 3 yrs ago, multiple picc lines for home abx - Gastrointestinal Hx Gall Bladder Disease: Yes Hx Gastroesophageal Reflux: Yes - Genitourinary/Gynecological Hx Urinary Tract Infection: Yes Other/Comment: self cath - Psychiatric Hx Psychophysiologic Disorder: No Hx Substance Use: No - Surgical History Hx Cholecystectomy: Yes Other/Comment: multiple surgeries from to 10 yrs old include 14 shunt operations, pins in hips, spinal cord sx - Anesthesia Hx Anesthesia Reactions: No Hx Malignant Hyperthermia: No - Suicidal Assessment Feels Threatened In Home Enviroment: No Family/Social History - Physician Review Nursing Documentation Reviewed: Yes Family/Social History: Unknown Family HX Smoking Status: Never Smoked Hx Alcohol Use: No Hx Substance Use: No Hx Substance Use Treatment: No Allergies/Home Meds Allergies/Adverse Reactions: Allergies latex Allergy (Severe, Verified 02/01/17 13:42) RASH banana Allergy (Verified 02/01/17 13:42) ANAPHYLAXIS peaches Allergy (Uncoded 02/01/17 13:42) ANAPHYLAXIS Home Medications: Home Meds Medication Instructions Recorded Confirmed carBAMazepine [Tegretol] 300 mg PO BID 12/21/13 02/01/17 Albuterol Sulfate [Proair Hfa] 0.09 mg IH BID PRN 12/01/16 02/01/17 Ciprofloxacin [Cipro] 500 mg PO BID 12/01/16 02/01/17 Cyanocobalamin [Vitamin B12 1000 1,000 mcg PO DAILY 12/01/16 02/01/17 mcg Tab] Esomeprazole Magnesium [Nexium] 40 mg PO DAILY 12/01/16 02/01/17 Montelukast [Singulair] 10 mg PO DAILY 12/01/16 02/01/17 Phenazopyridine HCl [Urinary Pain 2 tab PO TID 12/01/16 02/01/17 Relief] Promethazine [Promethazine HCl] 6.25 mg PO TID PRN 12/01/16 02/01/17 Vitb,C/Iron Fum/FA/Vit E/Aa 16 1 tab PO DAILY 12/01/16 02/01/17 [Stress Formula Energy Tablet] Review of Systems - Physician Review All systems were reviewed & negative as marked: Yes - Review of Systems Constitutional: absent: Fatigue, Fevers Respiratory: SOB, Cough. absent: Sputum, Wheezing Cardiovascular: Chest Pain. absent: Palpitations, Syncope Gastrointestinal: Abdominal Pain. absent: Constipation, Diarrhea, Nausea, Vomiting Genitourinary Female: absent: Dysuria, Frequency, Hematuria Neurological: absent: Headache, Dizziness Physical Exam Vital Signs Temp Pulse Resp BP Pulse Ox 02/01/17 13:46 98.7 F 94 H 16 136/67 97 Temperature: Afebrile Blood Pressure: Normal Pulse: Regular Respiratory Rate: Normal Appearance: Positive for: Well-Appearing, Non-Toxic, Comfortable Pain Distress: None Mental Status: Positive for: Alert and Oriented X 3 - Systems Exam Head: Present: Atraumatic, Normocephalic Pupils: Present: PERRL Extroacular Muscles: Present: EOMI Conjunctiva: Present: Normal Mouth: Present: Moist Mucous Membranes Pharnyx: No: ERYTHEMA, EXUDATE, TONSILS ENLARGED Neck: Present: Normal Range of Motion Respiratory/Chest: Present: Clear to Auscultation, Good Air Exchange. No: Respiratory Distress, Accessory Muscle Use Cardiovascular: Present: Regular Rate and Rhythm, Normal S1, S2. No: Murmurs Abdomen: Present: Normal Bowel Sounds, Other (Patient self caths). No: Tenderness, Distention, Peritoneal Signs, Rebound, Guarding Back: Present: Normal Inspection. No: CVA Tenderness, Midline Tenderness, Paraspinal Tenderness Upper Extremity: Present: Normal Inspection. No: Cyanosis, Edema Lower Extremity: Present: Normal Inspection. No: Edema Neurological: Present: GCS=15, CN II-XII Intact, Speech Normal Skin: Present: Warm, Dry, Normal Color. No: Rashes Psychiatric: Present: Alert, Oriented x 3, Normal Insight, Normal Concentration Medical Decision Making ED Course and Treatment: 02/01/17 14:25 EKG shows normal sinus rhythm rate approximately 60 with poor R waves and no acute ST or T-wave changes 02/01/17 16:19 Feeling better and wants to go home. Workup is negative. Will be discharged home with sister. Follow-up with PMD. Follow up in ER as needed. - Lab Interpretations Lab Results: 02/01/17 14:35 02/01/17 14:35 Lab Results 02/01/17 14:40: Urine Color Yellow, Urine Appearance Clear, Urine pH 7.5, Ur Specific [place] 1.020, Urine Protein Negative, Urine Glucose (UA) Negative, Urine Ketones Negative, Urine Blood Negative, Urine Nitrate Negative, Urine Bilirubin Negative, Urine Urobilinogen 0.2, Ur Leukocyte Esterase Negative 02/01/17 14:35: Sodium 139, Potassium 3.9, Chloride 103, Carbon Dioxide 25, Anion Gap 15, BUN 11, Creatinine 0.6, Est GFR ( Amer) > 60, Est GFR (Non- Af Amer) > 60, Random Glucose 86, Calcium 9.0, Total Bilirubin 0.3, AST 20, ALT 26, Alkaline Phosphatase 105, Lactate Dehydrogenase 500, Total Creatine Kinase 132, Troponin I < 0.01, NT-Pro-B Natriuret Pep 66.2, Total Protein 7.7, Albumin 4.1, Globulin 3.5, Albumin/Globulin Ratio 1.2, Amylase 84, Lipase 103 02/01/17 14:35: PT 10.5, INR 0.97, APTT 25.9 02/01/17 14:35: WBC 9.6, RBC 4.64, Hgb 13.1, Hct 40.2, MCV 86.6, MCH 28.2, MCHC 32.6, RDW 14.4, Plt Count 346, MPV 9.6, Gran % 66.1, Lymph % (Auto) 24.2, [place] % (Auto) 7.7 H, Eos % (Auto) 1.8, Baso % (Auto) 0.2, Gran # 6.38, Lymph # 2.3, [place] # 0.7 H, Eos # 0.2, Baso # 0.02 - RAD Interpretation Radiology Orders: 02/01/17 14:02 CHEST PORTABLE [RAD] Stat Chest 1 view shows no infiltrate effusion or cardiomegaly Spouter: Radiologist Disposition/Present on Arrival - Present on Arrival Any Indicators Present on Arrival: No History of DVT/PE: No History of Uncontrolled Diabetes: No Urinary Catheter: No History of Decub. Ulcer: No History Surgical Site Infection Following: None - Disposition Have Diagnosis and Disposition been Completed?: Yes Diagnosis: Bronchitis, Indigestion, Chest pain, Abdominal pain, Back pain Disposition: HOME/ ROUTINE Disposition Time: 16:20 Patient Plan: Discharge Condition: GOOD Discharge Instructions (ExitCare): Chest Pain (ED), Acute Abdominal Pain (ED), Acute Low Back Pain (ED) Referrals: Rhea Randhawa MD [Primary Care Provider] - Follow up with primary Forms: luma-id (Greek)
[2017-02-01 15:01] LABS: BASO # 0.02 K/mm3 (0.0-2.0); BASO % 0.2 % (0.0-3.0); EOS # 0.2 (0.0-0.7); EOS % 1.8 % (1.5-5.0); GRAN # 6.38 (1.4-6.5); GRAN % 66.1 % (50.0-68.0); HEMOGLOBIN 13.1 gm/dL (12.0-16.0); LYMPH # 2.3 (1.2-3.4); LYMPH % 24.2 % (22.0-35.0); MEAN CELL VOLUME 86.6 fL (80.0-105.0); MEAN CORPUSCULAR HEMOGLOBIN 28.2 pg (25.0-35.0); MEAN CORPUSCULAR HGB CONC 32.6 g/dl (31.0-37.0); MEAN PLATELET VOLUME 9.6 fl (7.0-11.0); MONO # 0.7 (0.1-0.6); MONO % 7.7 % (1.0-6.0); PLATELET COUNT 346 10^3/uL (120.0-450.0); RBC 4.64 10^6/uL (3.5-6.1); RED CELL DISTRIBUTION WIDTH 14.4 % (11.5-14.5); WHITE BLOOD COUNT 9.6 10^3/ul (4.5-11.0)
[2017-02-01 15:06] LABS: INR 0.97 (0.93-1.08); PARTIAL THROMBOPLASTIN TIME 25.9 Seconds (23.7-30.8); PROTHROMBIN TIME 10.5 Seconds (9.9-11.8)
[2017-02-01 15:08] LABS: ALB/GLOB RATIO 1.2 (1.1-1.8); ALBUMIN 4.1 g/dL (3.0-4.8); ALT/SGPT 26 U/L (7-56); AMYLASE 84 U/L (35-125); AST/SGOT 20 U/L (15-39); BLOOD UREA NITROGEN 11 mg/dL (7-21); GFR AFRICAN-AMERICAN > 60; GFR NON-AFRICAN AMERICAN > 60; LIPASE 103 U/L (23-300)
--- NOTE | 2017-02-01 15:16 | RAD ---
HISTORY: Chest pain COMPARISON: 11/17/2014. FINDINGS: LUNGS: The lungs are well inflated and clear. PLEURA: No significant pleural effusion identified, no pneumothorax apparent. CARDIOVASCULAR: Normal. OSSEOUS STRUCTURES: No significant abnormalities. VISUALIZED UPPER ABDOMEN: Normal. OTHER FINDINGS: None. IMPRESSION: No active pulmonary disease.
[2017-02-01 15:19] LABS: B-TYPE NATRIURETIC PEPTIDE 66.2 pg/mL (0-450)
[2017-02-01 15:21] LABS: PH,URINE 7.5 (4.7-8.0); URINE BILIRUBIN NEGATIVE (NEGATIVE); URINE BLOOD NEGATIVE (NEGATIVE); URINE GLUCOSE (UA) NEGATIVE (NEGATIVE); URINE LEUKOCYTE ESTERASE NEGATIVE Leu/uL (NEGATIVE); URINE NITRATE NEGATIVE (NEGATIVE); URINE PROTEIN NEGATIVE mg/dL (<30 mg/dL); URINE UROBILINOGEN 0.2 E.U./dL (<1 E.U./dL)
[2017-02-01 15:24] LABS: URINE APPEARANCE CLEAR (CLEAR); URINE COLOR YELLOW (YELLOW)
[2017-02-01 15:39] LABS: TROPONIN I < 0.01 ng/mL
--- NOTE | 2017-02-02 10:38 | CARD ---
APPROVED REPORT EKG Measurement Heart [id number] MD [id number] <Conclusion> Normal sinus rhythm LAD NSSTW changes No change
== END 2017-02-01 16:23 | disposition home or self-care (01) ==
LOC: ED 13:31
DX: J40 Bronchitis, not specified as acute or chronic (principal); M54.9 Dorsalgia, unspecified; R07.9 Chest pain, unspecified; R10.9 Unspecified abdominal pain; K30 Functional dyspepsia

== ENCOUNTER 2017-11-02 14:17 | Emergency (ER) | payer OTHER ==
[2017-11-02 14:21] VITALS: TEMP 98.9; BMI 45.3
[2017-11-02] MEDS ORDERED: Methocarbamol 500 MG Tab PO ONE (14:51)
--- NOTE | 2017-11-02 15:03 | ED PDOC ---
Arrival/HPI - General Chief Complaint: Upper Extremity Problem/Injury Time Seen by Provider: 11/02/17 14:49 Historian: Patient - History of Present Illness Narrative History of Present Illness (Text): 11/02/17 15:01 42 y/o woman w/ pmhx of spina bifida, s/p [employer] shunt, asthma ,walker dependent ambulation, multiple pediatric orthopedic surgeries, presents c/o several days of reproducible rt shoudelr pain raditing through the rihjt upper breast quadrant to the RUSB. Tender to palpation, more severe after using walker, never associated with sob/diaphoresis/exertional exacerbation/cold diaphoresis/ denies recent symptoms of infective foci nor any recent decrementation of her et. 11/02/17 15:10 Time/Duration: < week Symptom Onset: Gradual Symptom Course: Unchanged Quality: Aching, Tightness Past Medical History - Provider Review Nursing Documentation Reviewed: Yes - Infectious Disease Hx of Infectious Diseases: None - Tetanus Immunization Tetanus Immunization: Unknown - Cardiac Hx Cardiac Disorders: No - Pulmonary Hx Asthma: Yes Hx Bronchitis: Yes Hx Pneumonia: Yes - Neurological Hx Seizures: Yes (last seizure 3/4 yrs ago) - HEENT Hx HEENT Disorder: Yes (eyeglasses) Hx Blind: Yes (right eye total, left eye partial) Other/Comment: recent cough and cold done 1 wk ago - Renal Hx Renal Disorder: No Hx Neurogenic Bladder: Yes (self catherization) - Endocrine/Metabolic Hx Hyperthyroidism: No Hx Hypothyroidism: No - Hematological/Oncological Hx Blood Transfusions: No Hx Blood Transfusion Reaction: No - Integumentary Hx Dermatological Disorder: Yes Hx Basal Cell Carcinoma: No Hx Eczema: No Hx Melanoma: No Hx Psoriasis: No Hx Squamous Cell Carcinoma: No - Musculoskeletal/Rheumatological Hx Musculoskeletal Disorders: Yes (born with spina bifida) Hx Arthritis: No Hx Falls: No Hx Fractures: No Hx Osteoporosis: No Hx Unsteady Gait: Yes (uses walker b/l leg braces) Other/Comment: multiple 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] from age 19 to 3 yrs ago, multiple picc lines for home abx - Gastrointestinal Hx Gall Bladder Disease: Yes Hx Gastroesophageal Reflux: Yes - Genitourinary/Gynecological Hx Urinary Tract Infection: Yes Other/Comment: self cath - Psychiatric Hx Psychophysiologic Disorder: No Hx Substance Use: No - Surgical History Hx Cholecystectomy: Yes Other/Comment: multiple surgeries from to 10 yrs old include 14 shunt operations, pins in hips, spinal cord sx - Anesthesia Hx Anesthesia Reactions: No Hx Malignant Hyperthermia: No - Suicidal Assessment Feels Threatened In Home Enviroment: No Family/Social History - Physician Review Nursing Documentation Reviewed: Yes Family/Social History: No Known Family HX Smoking Status: Never Smoked Hx Alcohol Use: No Hx Substance Use: No Hx Substance Use Treatment: No Allergies/Home Meds Allergies/Adverse Reactions: Allergies latex Allergy (Severe, Verified 02/01/17 13:42) RASH banana Allergy (Verified 02/01/17 13:42) ANAPHYLAXIS peaches Allergy (Uncoded 02/01/17 13:42) ANAPHYLAXIS Home Medications: Home Meds Medication Instructions Recorded Confirmed carBAMazepine [Tegretol] 300 mg PO BID 12/21/13 02/01/17 Albuterol Sulfate [Proair Hfa] 0.09 mg IH BID PRN 12/01/16 02/01/17 Ciprofloxacin [Cipro] 500 mg PO BID 12/01/16 02/01/17 Cyanocobalamin [Vitamin B12 1000 1,000 mcg PO DAILY 12/01/16 02/01/17 mcg Tab] Esomeprazole Magnesium [Nexium] 40 mg PO DAILY 12/01/16 02/01/17 Montelukast [Singulair] 10 mg PO DAILY 12/01/16 02/01/17 Phenazopyridine HCl [Urinary Pain 2 tab PO TID 12/01/16 02/01/17 Relief] Promethazine [Promethazine HCl] 6.25 mg PO TID PRN 12/01/16 02/01/17 Vitb,C/Iron Fum/FA/Vit E/Aa 16 1 tab PO DAILY 12/01/16 02/01/17 [Stress Formula Energy Tablet] Review of Systems - Physician Review All systems were reviewed & negative as marked: Yes - Review of Systems Constitutional: Normal Eyes: Normal ENT: Normal Respiratory: Normal Cardiovascular: Other (cvhest wall/costochondral pain) Gastrointestinal: Normal Genitourinary Female: Normal Musculoskeletal: Arthralgias Skin: Normal Neurological: Normal Endocrine: Normal Hemo/Lymphatic: Normal Psychiatric: Normal Physical Exam Vital Signs Reviewed: Yes Vital Signs Temp Pulse Resp BP Pulse Ox 11/02/17 14:18 98.9 F 102 H 20 126/83 97 Temperature: Afebrile Blood Pressure: Normal Pulse: Regular Respiratory Rate: Normal Appearance: Positive for: Well-Appearing, Non-Toxic, Comfortable Pain Distress: None Mental Status: Positive for: Alert and Oriented X 3 - Systems Exam Head: Present: Atraumatic, Normocephalic Pupils: Present: PERRL Extroacular Muscles: Present: EOMI Conjunctiva: Present: Normal Mouth: Present: Moist Mucous Membranes Neck: Present: Normal Range of Motion Respiratory/Chest: Present: Clear to Auscultation, Good Air Exchange. No: Respiratory Distress, Accessory Muscle Use Cardiovascular: Present: Regular Rate and Rhythm, Normal S1, S2. No: Murmurs Abdomen: No: Tenderness, Distention, Peritoneal Signs Back: Present: Normal Inspection Upper Extremity: Present: Other (rt shoulder pain ). No: Cyanosis, Edema Lower Extremity: Present: Normal Inspection. No: Edema Neurological: Present: GCS=15, CN II-XII Intact, Speech Normal, Motor Func Grossly Intact, Normal Sensory Function, Normal Cerebellar Funct, Norm Deep Tendon Reflexes, Gait Normal, Memory Normal Skin: Present: Warm, Dry, Normal Color. No: Rashes Psychiatric: Present: Alert, Oriented x 3, Normal Insight, Normal Concentration Medical Decision Making ED Course and Treatment: 42 y/o female p/w minimal cardiac risk factors c/o musculoskeletal shoulder/rt sided chest wall/costochondral pain. PERC (-) ekg cxr shoulder xray analesics muscle relaxants discharge on same w/ advised stretches 11/02/17 15:29 11/02/17 15:53 NSR @ 94 BPM QTC : [address]-t segmets nor arrythmogenic intervals. 11/02/17 16:24 Pain much improved , xrays (-) for osseous abnormalities/joint space abnormalities nor airspaced isease nor cardiomegaly . 11/02/17 16:46 - RAD Interpretation Radiology Orders: 11/02/17 14:49 CHEST TWO VIEWS (PA/LAT) [RAD] Stat 11/02/17 14:50 SHOULDER RIGHT [RAD] Stat - Medication Orders Current Medication Orders: Discontinued Medications Ibuprofen (Motrin Tab) 800 mg PO STAT STA Stop: 11/02/17 14:52 Last Admin: 11/02/17 15:23 Dose: 800 mg Methocarbamol (Robaxin) 500 mg PO ONCE ONE Stop: 11/02/17 14:52 Last Admin: 11/02/17 15:27 Dose: 500 mg Disposition/Present on Arrival - Present on Arrival Any Indicators Present on Arrival: No History of DVT/PE: No History of Uncontrolled Diabetes: No Urinary Catheter: No History of Decub. Ulcer: No History Surgical Site Infection Following: None - Disposition Have Diagnosis and Disposition been Completed?: Yes Diagnosis: Shoulder pain, Costochondritis, acute Disposition: HOME/ ROUTINE Disposition Time: 16:47 Patient Plan: Discharge Condition: GOOD Discharge Instructions (ExitCare): Costochondritis, Shoulder Pain (DC) Print Language: SOUTH AFRICAN Additional Instructions: Practice stretches as we've discussed. Take the pain medicine only as needed, [id number] adjustingand changingthe height on your walker throughout the day to avoid repetitive use/strain and pain which is most likley waht caused this initially . Prescriptions: Ibuprofen [Motrin Tab] 600 mg PO Q6 PRN #40 tab PRN Reason: Pain, Moderate (4-7) Methocarbamol [Robaxin-750] 750 mg PO Q8 PRN #20 tablet PRN Reason: Muscle Spasm Referrals: Rhea Randhawa MD [Primary Care Provider] - Follow up with primary Forms: [employer] (Hungarian)
--- NOTE | 2017-11-02 15:53 | RAD ---
HISTORY: chest pain COMPARISON: 02/01/2017 TECHNIQUE: Chest PA and lateral FINDINGS: LUNGS: No active pulmonary disease. PLEURA: No significant pleural effusion identified. No pneumothorax apparent. CARDIOVASCULAR: Normal. OSSEOUS STRUCTURES: No significant abnormalities. VISUALIZED UPPER ABDOMEN: Normal. OTHER FINDINGS: None. IMPRESSION: No active disease.
--- NOTE | 2017-11-02 16:51 | RAD ---
PROCEDURE: Radiographs of the Right Shoulder HISTORY: shoulder pain COMPARISON: No prior. FINDINGS: BONES: Normal. No fracture. JOINTS: Normal. Glenohumeral and acromioclavicular joints preserved. No osteoarthritis. SOFT TISSUES: Normal. OTHER FINDINGS: None. IMPRESSION: Normal radiographs of the right shoulder.
[2017-11-02 16:53] VITALS: BP 108/66; PULSE 97; RESP 18; O2SAT 98
--- NOTE | 2017-11-03 15:24 | CARD ---
APPROVED REPORT EKG Measurement Heart [id number] [id number] <Conclusion> Normal sinus rhythm Minimal voltage criteria for LVH, may be normal variant Nonspecific T wave abnormality Abnormal ECG
== END 2017-11-02 17:33 | disposition home or self-care (01) ==
LOC: ED 14:17
DX: M25.511 Pain in right shoulder (principal); M94.0 Chondrocostal junction syndrome [Tietze]